=== PATIENT | female | born 1950 | race Caucasian/White ===

== ENCOUNTER 2023-10-11 11:33 | Outpatient (AMB) | payer BC, SELFPAY ==
--- NOTE | 2023-10-11 11:36 | HO.NEPHOV_ITS ---
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 He is 73 years of age with hypertension, dyslipidemia as well as history of gross hematuria. He is known to have benign prostatic hypertrophy. When his serum creatinine was about his baseline he underwent a renal ultrasound which showed bilateral moderate hydronephrosis and hydroureter. He underwent CT scan which did not show any obstructive calculi even though there was a calcification of the distal ureter(UVJ). He was started on tamsulosin. He had a Gar catheter placed but had a void trial G failed. He continues to have Gar catheter. He is being considered for a systolic. He is not a diabetic. His blood pressure is well controlled on current dose of amlodipine. He does not have any nausea, vomiting, diarrhea, chest pain, shortness of breath, paroxysmal nocturnal dyspnea, orthopnea, pedal edema, orthostatic symptoms, fever, palpitations. He does not take any excessive nonsteroidal anti-inflammatories. He tries to maintain good hydration. He does not have any new bone or back pain. His serum creatinine has gone up to 1.36. [facility] Medical History (Updated 10/11/23 @ 11:55 by Mick Ashby MD) Renal insufficiency Hypertension Hyperlipidemia H/O hematuria Dysuria Acute kidney injury Surgical History H/O colonoscopy Family History Father CAD (coronary artery disease) Mother Stroke Brother Stroke Review of Systems Const All systems reviewed & are unremarkable except as noted in HPI and below Physical Exam Vital Signs: Last Vital Signs Pulse 71 10/11/23 11:37 BP 120/78 10/11/23 11:37 Pulse Ox 98 10/11/23 11:37 Oxygen Delivery Method Room Air 10/11/23 11:37 BMI result Body Mass Index 21.7 Const General: comfortable and no acute distress Orientation/consciousness: patient oriented x3 HEENT Head: Yes normocephalic Mouth: Normal oral and palatal mucosa present Eyes EOM: EOMs intact bilaterally Neck Neck: Yes supple Resp Auscultation: clear to auscultation bilaterally Cardio Jugular venous distension: no JVD Rate: regular rate GI Palpation (GI): Soft to palpation Auscultation: normal bowel sounds General: Yes no CVA tenderness Back/Spine/Pelvis Back: no CVA tenderness Skin General skin exam: no rashes or lesions noted Neuro General: patient oriented x3 and moves all extremities Extrem General: Yes no pedal edema Results Reviewed Nephrology Results: No Data to Display Assessment & Plan Assessment & Plan (1) CKD stage 3a, GFR 45-59 ml/min: Code(s): N18.31 - Chronic kidney disease, stage 3a Category: Medical (2) Acute kidney injury: Code(s): N17.9 - Acute kidney failure, unspecified Category: Medical (3) Hypertension: Code(s): I10 - Essential (primary) hypertension Category: Medical Qualifiers: Hypertension type: primary hypertension Qualified Code(s): I10 - Essential (primary) hypertension Plan 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 He had ENRIQUE on CKD due to urinary retention with development of bilateral hydronephrosis and hydroureter. He had a Gar catheter placed and has failed void trial. Urology has seen him. He may need cystoscopy. He is not on any ALLAN inhibitor, ARB or nonsteroidal anti- inflammatories. His Gar catheter is draining clear urine. He does not take any excessive nonsteroidal anti-inflammatories and tries to maintain good hydration. There is no reason to suspect any new acute glomerular or inter stitial pathology causing his ENRIQUE. He might have sustained some tubular injury urine chronic obstruction and would have had age-related loss of renal functions. All these might have contributed to drop in GFR. I ordered CKD workup. He needs a follow-up renal ultrasound. His blood pressure is well controlled on current dose of amlodipine. I did not make any medication changes today. All questions answered. Follow-up appointment given. Orders: Orders Calcium 10/11/23 I10 - Essential (primary) hypertension, N18.31 - Chronic kidney disease, stage 3a, N17.9 - Acute kidney failure, unspecified Parathyroid Hormone Intact 10/11/23 I10 - Essential (primary) hypertension, N18.31 - Chronic kidney disease, stage 3a, N17.9 - Acute kidney failure, unspecified Vitamin D 25-OH Total 10/11/23 I10 - Essential (primary) hypertension, N18.31 - Chronic kidney disease, stage 3a, N17.9 - Acute kidney failure, unspecified Creatinine 10/11/23 I10 - Essential (primary) hypertension, N18.31 - Chronic kidney disease, stage 3a, N17.9 - Acute kidney failure, unspecified Blood Urea Nitrogen 10/11/23 I10 - Essential (primary) hypertension, N18.31 - Chronic kidney disease, stage 3a, N17.9 - Acute kidney failure, unspecified Electrolytes 10/11/23 I10 - Essential (primary) hypertension, N18.31 - Chronic kidney disease, stage 3a, N17.9 - Acute kidney failure, unspecified Immunofixation Pnl, Serum 10/11/23 I10 - Essential (primary) hypertension, N18.31 - Chronic kidney disease, stage 3a, N17.9 - Acute kidney failure, unspecified Coding Level of Care Code New Pt Level 4 (28293) Diagnoses CKD stage 3a, GFR 45-59 ml/min N18.31 Acute kidney injury N17.9 Primary hypertension I10 Hypertension type: primary hypertension
[2023-10-11 11:37] VITALS: BP 120/78; PULSE 71; O2SAT 98; BMI 21.7
== END 2023-10-11 12:33 | disposition home or self-care (01) ==
PROVIDERS: PCP Family Medicine; Visit Provider Internal Medicine Nephrology
DX: N18.31 Chronic kidney disease, stage 3a (principal); N17.9 Acute kidney failure, unspecified; I10 Essential (primary) hypertension
CPT/HCPCS: 99204

== ENCOUNTER → 2023-10-11 11:33 | Outpatient (BNVA) | payer BC, SELFPAY | PROVIDERS: PCP Family Medicine; Visit Provider Internal Medicine Nephrology ==

== ENCOUNTER 2024-01-05 11:11 | Outpatient (REF) | payer BC, SELFPAY ==
[2024-01-05 14:41] LABS: Anion Gap 10 (12-20); Blood Urea Nitrogen 21 mg/dL (9-16); Carbon Dioxide 28 mmol/L (22-29); Chloride 107 mmol/L (96-108); Estimated Glomerular Filt Rate 55; Potassium 3.7 mmol/L (3.3-5.1); Sodium 141 mmol/L (135-145)
[2024-01-05 15:00] LABS: Vitamin D 25-OH Total 31.4 ng/mL (>30)
[2024-01-05 15:04] LABS: Parathyroid Hormone Intact 102.4 pg/mL (8.7-77.1)
[2024-01-07 20:38] LABS: IgA 388 mg/dL (70-320); IgG 1110 mg/dL (600-1540); IgM 26 mg/dL (50-300)
== END 2024-01-05 11:12 | disposition home or self-care (01) ==
LOC: HO.WFDLDS 11:11
PROVIDERS: Visit Provider Internal Medicine Nephrology
DX: I12.9 Hypertensive chronic kidney disease with stage 1 through stage 4 chronic kidney disease, or unspecified chronic kidney disease (principal); N18.31 Chronic kidney disease, stage 3a; N17.9 Acute kidney failure, unspecified
CPT/HCPCS: 36415; 80051; 82306; 82310; 82565; 82784; 83970; 84520; 86334

== ENCOUNTER 2024-01-12 10:11 | Outpatient (AMB) | payer BC, SELFPAY ==
[2024-01-12 10:27] VITALS: BP 124/64; PULSE 55; O2SAT 99; BMI 22.4
--- NOTE | 2024-01-12 10:27 | HO.NEPHOV ---
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 He is 73 years of age with hypertension, dyslipidemia as well as history of gross hematuria. He is known to have benign prostatic hypertrophy. When his serum creatinine was about his baseline he underwent a renal ultrasound which showed bilateral moderate hydronephrosis and hydroureter. He underwent CT scan which did not show any obstructive calculi even though there was a calcification of the distal ureter(UVJ). He has been on tamsulosin. He had a Gar catheter placed but had a void trial failed. His Gar catheter was discontinued after prostatectomy. He is not a diabetic. His blood pressure is well controlled on current dose of amlodipine. He does not have any nausea, vomiting, diarrhea, chest pain, shortness of breath, paroxysmal nocturnal dyspnea, orthopnea, pedal edema, orthostatic symptoms, fever, palpitations. He does not take any excessive nonsteroidal anti-inflammatories. He tries to maintain good hydration. He does not have any new bone or back pain. His serum creatinine has gone back to baseline [facility] Medical History (Updated 10/11/23 @ 11:55 by Mick Ashby MD) Renal insufficiency Hypertension Hyperlipidemia H/O hematuria Dysuria Acute kidney injury Surgical History H/O colonoscopy Family History Father CAD (coronary artery disease) Mother Stroke Brother Stroke Review of Systems Const All systems reviewed & are unremarkable except as noted in HPI and below Physical Exam Vital Signs: Last Vital Signs Pulse 55 01/12/24 10:27 BP 124/64 01/12/24 10:27 Pulse Ox 99 01/12/24 10:27 Oxygen Delivery Method Room Air 01/12/24 10:27 BMI result Body Mass Index 22.4 Const General: comfortable and no acute distress Orientation/consciousness: patient oriented x3 HEENT Head: Yes normocephalic Mouth: Normal oral and palatal mucosa present Eyes EOM: EOMs intact bilaterally Neck Neck: Yes supple Resp Auscultation: clear to auscultation bilaterally Cardio Jugular venous distension: no JVD Rate: regular rate GI Palpation (GI): Soft to palpation Auscultation: normal bowel sounds General: Yes no CVA tenderness Back/Spine/Pelvis Back: no CVA tenderness Skin General skin exam: no rashes or lesions noted Neuro General: patient oriented x3 and moves all extremities Extrem General: Yes no pedal edema Results Reviewed Nephrology Results: Sodium 141 mmol/L (135-145) 01/05/24 Potassium 3.7 mmol/L (3.3-5.1) 01/05/24 Chloride 107 mmol/L (96-108) 01/05/24 Carbon Dioxide 28 mmol/L (22-29) 01/05/24 BUN 21 mg/dL (9-16) H 01/05/24 Creatinine 0.99 mg/dL (0.5-1.4) 01/05/24 Calcium 9.0 mg/dL (8.4-10.2) 01/05/24 PTH Intact 102.4 pg/mL (8.7-77.1) H 01/05/24 Assessment & Plan Assessment & Plan (1) CKD stage 3a, GFR 45-59 ml/min: Code(s): N18.31 - Chronic kidney disease, stage 3a Category: Medical (2) Hypertension: Code(s): I10 - Essential (primary) hypertension Category: Medical Qualifiers: Hypertension type: primary hypertension Qualified Code(s): I10 - Essential (primary) hypertension Plan 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 He had ENRIQUE on CKD due to urinary retention with development of bilateral hydronephrosis and hydroureter which has settled to baseline following prostatectomuy. He is not on any ALLAN inhibitor, ARB or nonsteroidal anti-inflammatories. He does not take any excessive nonsteroidal anti-inflammatories and tries to maintain good hydration. He needs a follow-up renal ultrasound. His blood pressure is well controlled on current dose of amlodipine. I did not make any medication changes today. All questions answered. Follow-up appointment given. Orders: Orders Parathyroid Hormone Intact 8 Months I10 - Essential (primary) hypertension, N18.31 - Chronic kidney disease, stage 3a Electrolytes 8 Months I10 - Essential (primary) hypertension, N18.31 - Chronic kidney disease, stage 3a Calcium 8 Months I10 - Essential (primary) hypertension, N18.31 - Chronic kidney disease, stage 3a Creatinine 8 Months I10 - Essential (primary) hypertension, N18.31 - Chronic kidney disease, stage 3a Vitamin D 25-OH Total 8 Months I10 - Essential (primary) hypertension, N18.31 - Chronic kidney disease, stage 3a Blood Urea Nitrogen 8 Months I10 - Essential (primary) hypertension, N18.31 - Chronic kidney disease, stage 3a Medications: Changed From amlodipine 7.5 mg PO DAILY To amlodipine 5 mg PO DAILY 90 days 90 tabs 4RF Coding Level of Care Code Est Pt Level 4 (46466) Diagnoses CKD stage 3a, GFR 45-59 ml/min N18.31 Primary hypertension I10 Hypertension type: primary hypertension
== END 2024-01-12 10:53 | disposition home or self-care (01) ==
PROVIDERS: PCP Family Medicine; Visit Provider Internal Medicine Nephrology
DX: I12.9 Hypertensive chronic kidney disease with stage 1 through stage 4 chronic kidney disease, or unspecified chronic kidney disease (principal); N18.31 Chronic kidney disease, stage 3a
CPT/HCPCS: 99214

== ENCOUNTER → 2024-01-12 10:11 | Outpatient (BNVA) | payer BC, SELFPAY | PROVIDERS: PCP Family Medicine; Visit Provider Internal Medicine Nephrology ==

== ENCOUNTER 2025-02-07 15:57 | Outpatient (AMB) | payer BC, SELFPAY ==
--- OUTSIDE RECORDS SUMMARY | 2025-02-02 23:59 | XMS_ITS | Continuity of Care Document ---
Author Organization [facility] Address [address] [place] [address] [address] [place] [address]- Care Team Providers Care Global Process Owner Name Role Phone Kaelyn GASTON, Noy Primary Care Physician [id number] Date(s): 12/19/24 - 02/02/[address] [place] [address]- Attending Physician: Parrish Echeverria MD Referring Physician: Edd Gibson MD Encounter Type: Pre Office Visit Allergies, Adverse Reactions, Alerts Substance Criticality Severity Reaction Reaction Severity Status clindamycin Active Biaxin Active Immunizations Given and Recorded Vaccine Date Status Refusal Reason RSV vaccine, preF A-preF B, recombinant 02/17/24 R ecorded influenza virus vaccine, inactivated 02/17/24 Sixto rded SARS-CoV-2 (COVID-19) mRNA-1273 vaccine 03/04/21 R ecorded SARS-CoV-2 (COVID-19) mRNA-1273 vaccine 06/25/20 R ecorded SARS-CoV-2 (COVID-19) mRNA-1273 vaccine 05/28/20 R ecorded Medications acyclovir 400 mg oral tablet 1 tablet, By Mouth, 2 times a day, # 180 tablet, 0 Refills, Maintenance, 12/29/24 7:53:00 AM EDT, [id number], 178, cm, 12/28/24 13:04:00 EDT, Height, 65.5, kg, 12/18/24 9:51:00 EDT, Dry Weight Start Date: 12/29/24 Status: Ordered Medication Dispense Status: Completed Quantity: 180.0 Unit: tablet Total Allowed Fills: 1 Fills Dispensed: 0 allopurinol 300 mg oral tablet 1, tablet, By Mouth, Daily, # 90 tablet, Refills 0, Maintenance, 12/29/24 7:53:00 AM EDT, Route to Pharmacy Electronically, [id number], 178, cm, 12/28/24 13:04:00 EDT, Height, 65.5, kg, 12/18/24 9:51:00 EDT, Dry Weight Start Date: 12/29/24 Status: Ordered Medication Dispense Status: Completed Quantity: 90.0 Unit: tablet Total Allowed Fills: 1 Fills Dispensed: 0 levoFLOXacin 500 mg oral tablet 1 tablet = 500 mg, By Mouth, Every 24 hours, # 90 tablet, 0 Refills, Maintenance, 01/18/25 10:18:00AM EDT, Tablet, [facility]/pharmacy #[id number], Partial fill upon patient request if the prescription is for a schedule II opioid drug., 178, cm, 01/18/25 9:49:00 EDT, Height, 65.2, kg, 01/02/25 9:10:00 EDT, DryWeight Start Date: 01/18/25 Stop Date: 02/17/25 Status: Ordered Medication Dispense Status: Completed Quantity: 90.0 Unit: tablet Total Allowed Fills: 1 Fills Dispensed: 0 levoFLOXacin 500 mg oral tablet 1 tablet = 500 mg, By Mouth, Daily, # 5 tablet, 0 Refills, Maintenance, 12/18/24 9:58:00 AM EDT, Tablet, Partial fill upon patient request if the prescription is for a schedule II opioid drug. Start Date: 12/18/24 Stop Date: 12/28/24 Status: Ordered Medication Dispense Status: Completed Quantity: 5.0 Unit: tablet Total Allowed Fills: 1 Fills Dispensed: 0 ondansetron 8 mg oral tablet 1 tablet = 8 mg, By Mouth, Every 8 hours, PRN Nausea, may cause constipation for use when starts chemotherapy, # 30 tablet, 2 Refills, Maintenance, 08/28/24 12:17:00 PM EDT, [facility] #[id number], Partialfill upon patient request if the prescription is for a schedule II opioid drug., 174.5, cm, 08/24/24 13:16:00 EDT, Height, 61.6, kg, 08/14/24 12:41:00 EDT, Dry Weight Start Date: 08/28/24 Status: Ordered Medication Dispense Status: Completed Quantity: 30.0 Unit: tablet Total Allowed Fills: 3 Fills Dispensed: 0 pantoprazole 40 mg oral delayed release tablet 1 tablet, By Mouth, Daily, # 90 tablet, 0 Refills, Maintenance, 12/29/24 7:53:00 AM EDT, 178, cm, 12/28/24 13:04:00 EDT, Height, 65.5, kg, 12/18/24 9:51:00 EDT, Dry Weight Start Date: 12/29/24 Status: Ordered Medication Dispense Status: Completed Quantity: 90.0 Unit: tablet Total Allowed Fills: 1 Fills Dispensed: 0 posaconazole 100 mg oral delayed release tablet 3 tablet, By Mouth, Daily, # 90 tablet, 2 Refills, Maintenance, 02/02/25 10:46:00 AM EST, [id number], 178, cm, 02/01/25 11:47:00 EST, Height, 65.2, kg, 01/02/25 9:10:00 EDT, Dry Weight Start Date: 02/02/25 Stop Date: 03/04/25 Status: Ordered Medication Dispense Status: Completed Quantity: 90.0 Unit: tablet Total Allowed Fills: 1 Fills Dispensed: 0 Potassium Chloride (Ose-Oqhm-Oqa M20) 20 mEq oral tablet, extended release 1 tablet = 20 mEq, By Mouth, Daily, # 90 tablet, 0 Refills, Maintenance, 02/01/25 4:45:00 PM EST, ERTablet, [facility]/pharmacy #[id number], Partial fill upon patient request if the prescription is for a scheduleII opioid drug., 178, cm, 02/01/25 11:47:00 EST, Height, 65.2, kg, 01/02/25 9:10:00 EDT, Dry Weight Start Date: 02/01/25 Status: Ordered Medication Dispense Status: Completed Quantity: 90.0 Unit: tablet Total Allowed Fills: 1 Fills Dispensed: 0 venetoclax 100 mg oral tablet 1 tablet = 100 mg, By Mouth, Daily, # 14 tablet, 0 Refills, Maintenance, 11/17/24 9:21:00 AM EDT, Tablet, [facility], Partial fill upon patient request if the prescription is for a schedule II opioid drug., 178, cm, 11/16/24 13:02:00 EDT, Height, 65.3, kg, 11/02/24 14:06:00 EDT, DryWeight Start Date: 11/17/24 Stop Date: 12/01/24 Status: Ordered Medication Dispense Status: Completed Quantity: 14.0 Unit: tablet Total Allowed Fills: 1 Fills Dispensed: 0 Problem List Condition Confirmation Course Effective Dates Status H ealth Status Informant Acute 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 Confirmed 09/08/24 Active GERD without esophagitis Confirmed Active H/O hematuria 1 Confirmed Active S/P prostatectomy Confirmed Active Hyperlipidemia Confirmed Active Hypertension Confirmed Active 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 Umbilical hernia without obstruction and without gangrene Confirmed Active [id number] Social History Social History Type Response Smoking Status Never (less than 100 in lifetime) entered on: 06/19/20 Sexual Orientation Self described orien tation: ; Straight or heterosexual Sex Male Sex Representation Male (finding) Patient Care team information Care Team Personnel Name: Macarena Villarreal RN Position: [facility] RN Member Role: Primary Care Nurse Name: Yvonne Cisneros RN Position: [facility] RN Supv Member Role: Primary Care Nurse Name: Yvonne Haley RN Position: S RN Member Role: Primary Care Nurse Name: Deborah Sauer RN Position: [facility] Onco RN Member Role: Primary Care Nurse Name: Cate Brock RN Position: S RN Member Role: Primary Care Nurse Name: Brittni Magana RN Position: [facility] Onco RN Member Role: Primary Care Nurse Name: Cordelia Alaniz RN Position: [facility] RN Member Role: Primary Care Nurse Name: Cass Ugalde RN Position: [facility] Onco RN Member Role: Primary Care Nurse Name: Yvonne Canales RN Position: S RN Member Role: Primary Care Nurse Name: Daniel Dietz RN Position: S RN Member Role: Primary Care Nurse Name: Verónica Paez RN Position: S RN Member Role: Primary Care Nurse Name: Tiffany Baeza RN Position: [facility] ED RN W/OE and Tasks Member Role: Primary Care Nurse Name: Dominick Gonzalez RN Position: [facility] RN Member Role: Primary Care Nurse Name: Elbert Conley RN Position: [facility] RN Member Role: Primary Care Nurse Name: Dacia Mayers RN Position: [facility] Onco RN Member Role: Primary Care Nurse Name: Pamela Pop RN Position: [facility] Onco RN Member Role: Primary Care Nurse Name: Herminia Nunes Position: [facility] RN Member Role: Primary Care Nurse Name: Noy Art MD Position: [facility] Physician - Primary Care Member Role: PCP Address: [address] [place] [id number]- Telecom: Name: Miah Aly RN Position: [facility] Onco RN Member Role: Primary Care Nurse Name: Ellyn Dewitt RN Position: [facility] Onco RN Member Role: Primary Care Nurse Name: Yvonne Carlton RN Position: [facility] Onco RN Member Role: Primary Care Nurse Name: Edy Gillespie RN Position: [facility] RN Member Role: Primary Care Nurse Name: Thu Mckay RN Position: [facility] RN Member Role: Primary Care Nurse Name: Raleigh Zamarripa RN Position: [facility] RN Member Role: Primary Care Nurse Name: Katrin Brady RN Position: [facility] RN Member Role: Primary Care Nurse Name: Frances Sol RN Position: [facility] RN Member Role: Primary Care Nurse Name: Giana Garza RN Position: [facility] RN Member Role: Primary Care Nurse Name: Michael Osman RN Position: [facility] RN Member Role: Primary Care Nurse Name: Shasha Thornton RN Position: [facility] RN Member Role: Primary Care Nurse Care Team Related Persons Name: VALERIE MCGILL Insurance Providers Guarantor name: DRU MELVIJEANNINE [facility] Plan Information #: 1 Payer: [facility] PPO Payer Identifier: NA Member Number: [id number] Group Number: [id number] Subscriber Identifier: [id number] Relationship to Subscriber: self Coverage Type: Medicare PPO Coverage Verification Date: NA Telecom: NA Address:
--- OUTSIDE RECORDS SUMMARY | 2025-02-02 23:59 | XMS_ITS | Continuity of Care Document ---
Author Organization [facility] Address [address] [place] [address] [address] [place] [address]- Care Team Providers Care Elevated Work Platform Operator Name Role Phone Kaelyn GASTON, Noy Primary Care Physician Encounter [facility] Date(s): 01/03/25 - 02/02/[address] [place], [place] [address] Attending Physician: Admtr, Ar8 Admitting Physician: Admtr, Ar8 Referring Physician: Admtr, Ar8 Encounter Type: Triage Allergies, Adverse Reactions, Alerts Substance Criticality Severity [...] 0 Refills, Maintenance, 12/29/24 7:53:00 AM EDT, [id number], 178, cm, 12/28/24 13:04:00 EDT, Height, 65.5, kg, 12/18/24 9:51:00 EDT, Dry Weight Start Date: 12/29/24 Status: Ordered Medication Dispense Status: Completed Quantity: 180.0 Unit: tablet Total Allowed Fills: 1 Fills Dispensed: 0 allopurinol 300 mg oral tablet 1, tablet, By Mouth, Daily, # 90 tablet, Refills 0, Maintenance, 12/29/24 7:53:00 AM EDT, Route to Pharmacy Electronically, [id number], 178, cm, 12/28/24 13:04:00 EDT, Height, 65.5, kg, 12/18/24 9:51:00 EDT, Dry Weight Start Date: 12/29/24 Status: Ordered Medication Dispense Status: Completed Quantity: 90.0 Unit: tablet Total Allowed Fills: 1 Fills Dispensed: 0 levoFLOXacin 500 mg oral tablet 1 tablet = 500 mg, By Mouth, Every 24 hours, # 90 tablet, 0 Refills, Maintenance, 01/18/25 10:18:00AM EDT, Tablet, [facility]/pharmacy #[id number], Partial fill upon patient request if [...] 2 Refills, Maintenance, 02/02/25 10:46:00 AM EST, [id number], 178, cm, 02/01/25 11:47:00 EST, Height, 65.2, kg, 01/02/25 9:10:00 EDT, Dry Weight Start Date: 02/02/25 Stop Date: 03/04/25 Status: Ordered Medication Dispense Status: Completed Quantity: 90.0 Unit: tablet Total Allowed Fills: 1 Fills Dispensed: 0 Potassium Chloride (Wbo-Klpp-Ufj M20) 20 mEq oral tablet, extended release 1 tablet = 20 mEq, By Mouth, Daily, # 90 tablet, 0 Refills, Maintenance, 02/01/25 4:45:00 PM EST, ERTablet, [facility]/pharmacy #[id number], Partial fill upon patient request if [...] Refills, Maintenance, 11/17/24 9:21:00 AM EDT, Tablet, [facility], Partial fill upon patient [...] without obstruction and without gangrene Confirmed Active [id number] Social History Social History Type Response Smoking Status Never (less than 100 in lifetime) entered on: 06/19/20 Sexual Orientation Self described orien tation: ; Straight or heterosexual Sex Male Sex Representation Male (finding) Patient Care team information Care Team Personnel Name: Macarena Villarreal RN Position: [facility] RN Member Role: Primary Care Nurse Name: Yvonne Cisneros RN Position: [facility] RN Supv Member Role: Primary Care Nurse Name: Yvonne Haley RN Position: S RN Member Role: Primary Care Nurse Name: Deborah Sauer RN Position: [facility] Onco RN Member Role: Primary Care Nurse Name: Cate Brock RN Position: S RN Member Role: Primary Care Nurse Name: Brittni Magana RN Position: S Onco RN Member Role: Primary Care Nurse Name: Cordelia Alaniz RN Position: [facility] RN Member Role: Primary Care Nurse Name: Cass Ugalde RN Position: [facility] Onco RN Member Role: Primary Care Nurse Name: Yvonne Canales RN Position: S RN Member Role: Primary Care Nurse Name: Daniel Dietz RN Position: [facility] RN Member Role: Primary Care Nurse Name: Verónica Paez RN Position: S RN Member Role: Primary Care Nurse Name: Tiffany Baeza RN Position: [facility] ED RN W/OE and Tasks Member Role: Primary Care Nurse Name: Dominick Gonzalez RN Position: [facility] RN Member Role: Primary Care Nurse Name: Elbert Conley RN Position: [facility] RN Member Role: Primary Care Nurse Name: Dacia Mayers RN Position: [facility] Onco RN Member Role: Primary Care Nurse Name: Pamela Pop RN Position: [facility] Onco RN Member Role: Primary Care Nurse Name: Herminia Nunes Position: [facility] RN Member Role: Primary Care Nurse Name: Noy Art MD Position: [facility] Physician - Primary Care Member Role: PCP Address: [address] [place] [id number] Telecom: Name: Miah Aly RN Position: [facility] Onco RN Member Role: Primary Care Nurse Name: Ellyn Dewitt RN Position: [facility] Onco RN Member Role: Primary Care Nurse Name: Yvonne Carlton RN Position: [facility] Onco RN Member Role: Primary Care Nurse Name: Edy Gillespie RN Position: [facility] RN Member Role: Primary Care Nurse Name: Thu Mckay RN Position: [facility] RN Member Role: Primary Care Nurse Name: Raleigh Zamarripa RN Position: [facility] RN Member Role: Primary Care Nurse Name: Katrin Brady RN Position: [facility] RN Member Role: Primary Care Nurse Name: Frances Sol RN Position: [facility] RN Member Role: Primary Care Nurse Name: Giana Garza RN Position: [facility] RN Member Role: Primary Care Nurse Name: Michael Osman RN Position: [facility] RN Member Role: Primary Care Nurse Name: Shasha Thornton RN Position: [facility] RN Member Role: Primary Care Nurse Care Team Related Persons Name: GINO MCGILLCY Insurance Providers Guarantor name: DRU MCGILL [facility] Plan Information #: 1 Payer: [facility] PPO Payer Identifier: TYRONE Member Number: [id number] Group Number: [id number] Subscriber Identifier: TYRONE Relationship to Subscriber: self Coverage Type: Medicare PPO Coverage Verification Date: NA Telecom: NA Address:
--- NOTE | 2025-02-07 15:58 | HO.NEPHOV ---
Vital Signs 02/07/25 16:04 Height 51 ft Weight 144 lb 6 oz BMI 0.3 BP 134/80 Blood Pressure Location Lt brachial Position Sitting Pulse 67 Pulse Source Pulse Oximeter Pulse Oximetry (%) 99 Oxygen Delivery Method Room Air Intake Visit Reasons: Overdue F/U-Conf Necktie Centralizing Machine Operator Required: No Accompanied by: Self / Same As Patient Allergies clindamycin Allergy (Verified 02/07/25 16:04) Unknown blaxin Allergy (Uncoded 10/04/23 11:43) Unknown HPI Comments Details: Familia was seen in follow up for his CKD. He is 73 years of age with hypertension, dyslipidemia as well as history of gross hematuria. He is known to have benign prostatic hypertrophy. When his serum creatinine was about his baseline he underwent a renal ultrasound which showed bilateral moderate hydronephrosis and hydroureter. He underwent CT scan which did not show any obstructive calculi even though there was a calcification of the distal ureter(UVJ). He has been on tamsulosin. He had a Gar catheter placed but had a void trial failed. His Gra catheter was discontinued after prostatectomy. He is not a diabetic. His blood pressure is well controlled on current dose of amlodipine. He does not have any nausea, vomiting, diarrhea, chest pain, shortness of breath, paroxysmal nocturnal dyspnea, orthopnea, pedal edema, orthostatic symptoms, fever, palpitations. He does not take any excessive nonsteroidal anti-inflammatories. He tries to maintain good hydration. He does not have any new bone or back pain. 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 His serum creatinine is stable and close to baseline PENDING SALE TO [facility] Medical History (Updated 10/11/23 @ 11:55 by Mick Ashby MD) Renal insufficiency Hypertension Hyperlipidemia H/O hematuria Dysuria Acute kidney injury Surgical History H/O colonoscopy Family History Father CAD (coronary artery disease) Mother Stroke Brother Stroke Review of Systems Const All systems reviewed & are unremarkable except as noted in HPI and below Physical Exam Const General: comfortable and no acute distress Orientation/consciousness: patient oriented x3 HEENT Head: Yes normocephalic Mouth: Normal oral and palatal mucosa present Eyes EOM: EOMs intact bilaterally Neck Neck: Yes supple Resp Auscultation: clear to auscultation bilaterally Cardio Jugular venous distension: no JVD Rate: regular rate GI Palpation (GI): Soft to palpation Auscultation: normal bowel sounds General: Yes no CVA tenderness Back/Spine/Pelvis Back: no CVA tenderness Skin General skin exam: no rashes or lesions noted Neuro General: patient oriented x3 and moves all extremities Extrem General: Yes no pedal edema Assessment & Plan Assessment & Plan (1) CKD stage 3a, GFR 45-59 ml/min: Code(s): N18.31 - Chronic kidney disease, stage 3a Category: Medical (2) Hypertension: Code(s): I10 - Essential (primary) hypertension Category: Medical Qualifiers: Hypertension type: primary hypertension Qualified Code(s): I10 - Essential (primary) hypertension Plan 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 He has H/O ENRIQUE on CKD due to urinary retention with development of bilateral hydronephrosis and hydroureder which has settled to baseline following prostatectomuy. He is not on any ALLAN inhibitor, ARB or nonsteroidal anti-inflammatories. He does not take any excessive nonsteroidal anti-inflammatories and tries to maintain good hydration. He needs a follow-up renal ultrasound. His blood pressure is well controlled. I did not make any medication changes today. All questions answered. Follow-up appointment given. Orders: Orders Electrolytes 8 Months I10 - Essential (primary) hypertension, N18.31 - Chronic kidney disease, stage 3a Calcium 8 Months I10 - Essential (primary) hypertension, N18.31 - Chronic kidney disease, stage 3a Blood Urea Nitrogen 8 Months I10 - Essential (primary) hypertension, N18.31 - Chronic kidney disease, stage 3a Creatinine 8 Months I10 - Essential (primary) hypertension, N18.31 - Chronic kidney disease, stage 3a Coding Level of Care Code Est Pt Level 4 (31228) Diagnoses CKD stage 3a, GFR 45-59 ml/min N18.31 Primary hypertension I10 Hypertension type: primary hypertension
[2025-02-07 16:04] VITALS: BP 134/80; PULSE 67; O2SAT 99
--- OUTSIDE RECORDS SUMMARY | 2025-02-07 18:52 | XMS_ITS | Encounter Summary ---
Author Organization [facility] Address [address] [place] [address] Phone Care Team Providers Care Chairman President And Chief Executive Officer Name Role Phone Sarath Anthony Primary Care Provider Domenico Arshad MD Unavailable [phone] Stephanie Choi RN Unavailable Encounter Details Date Type Department Care Team (Latest Contact Info) Description 02/07/2025 Lab Requisition [facility] Histocmpatibility Lab [address] [place] [address] Diomedes Smith MD, MPH [address] [place] [address] [email or web address] Donor of unspecified organ or tissue Social History Tobacco Use Types Packs/Day Years Used Date Smoking Tobacco: Former Cigarettes Alcohol Use Standard Drinks/Week Comments Yes 3 (1 standard drink = 0.6 oz pure alcohol) 3 beers per day (stop last year) Child or Family Care Answer Date Record ed Do you have problems with on e of the following making it difficult for you to work, study, or receive health care? No 12/20/2024 Education Answer Date Recorded Are you interested in more education? Not on venkata e 12/05/2024 Are you concerned about learning? Not on file 12/05/2024 No 12/05/2024 No 12/05/2024 Food Answer Date Recorded Within the past 6 months we worried whether our food would run out before we got money to buy more. Never True 12/20/2024 Within the past 6 months the food we bought just didn't last and we didn't have enough money to get more. Never True Residential Stability Answer Date Recor ded What is your housing situation today? I have johan sing 12/20/2024 How many times have you move d in the past 12 months? Zero (I did not move) 12/20/2024 Paying for Meds Answer Date Recorded Do you have trouble paying for medicines? No 12/20/2024 Paying Utility Bills Answer Date Record ed Do you have trouble paying your heating or elect ricity bill? No 12/20/2024 Transportation Answer Date Recorded Has the lack of transportati on kept you from medical appointments or from getting medications? No 12/20/2024 Digital Access Answer Date Recorded No 12/05/2024 No 12/05/2024 Reliable internet access at home? Not on file 12/05/2024 Device with a working camera? Not on file Sex and Gender Information Value Date Recorded Sex Assigned at Male 12/04/2024 8:52 AM EDT Legal Sex Male 8:50 AM EDT Gender Identity Male 12/04/2024 8:52 AM EDT Sexual Orientation Straight 12/04/2024 9: 22 AM EDT documented as of this encounter Plan of Treatment Pending Results Name Type Priority Associated Diagnoses Date /Time HSCT Donor - Final (Confirmatory) Workup ([facility]) Lab Routine Donor of unspecified organ or tissue 02/02/2025 7:15 AM EST documented as of this encounter Visit Diagnoses Diagnosis Donor of unspecified organ or tissue documented in this encounter Care Teams Chairman President And Chief Executive Officer Relationship Specialty Start Date End Date Sarath Anthony DO [address] [facility] [place] [place] [address] PCP - General Family Medicine 12/04/24 Domenico Arshad MD [address] [facility] [place] [address] [email or web address] Referring Physician 12/04/24 Stephanie Choi, STEPHANE [address] [place] [phone] [email or web address] Nurse Navigator Transplant 01/09/25 documented as of this encounter Additional Source Comments The information contained in this document represents components of the legal health record. It is not the complete legal health record.[facility]
--- OUTSIDE RECORDS SUMMARY | 2025-02-07 18:52 | XMS_ITS | Encounter Summary ---
Author Organization [facility] Address [address] [place] [address] Phone Care Team Providers Care Special Makeup Fx Artist Instructor Name Role Phone Sarath Anthony DO Primary Care Provider Domenico Arshad MD Unavailable [phone] Stephanie Choi RN Unavailable Reason for Referral * Molecular Pathology - Denied Specialty Diagnoses / Procedures Referred By Yanira whitmore Referred To Contact Diagnoses Acute 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 Procedures Bone Marrow Frances Meyer PA-C [address] [place] [address] Phone: tel: fax: [email or web address] Referral ID Status Reason Start Date Expiration Date Visits Re quested Visits Authorized [id number] Denied 01/02/2025 1 0 Encounter Details Date Type Department Care Team (Late st Contact Info) Description 01/02/2025 Orders Only [facility], Division of Hematologic Oncology, [facility] [place] [address] [place] [address], [address] [place] [address] Frances Meyer PA-C [address] [place] [id number] [email or web address] 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) Social History Tobacco Use Types Packs/Day Years [...] as of this encounter Plan of Treatment Not on file documented as of this encounter Visit Diagnoses Diagnosis 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 documented in this encounter Care Teams Special Makeup Fx Artist Instructor Relationship Specialty Start Date End Date Sarath Anthony DO [address] [facility] [place] [address] PCP - General Family Medicine 12/04/24 [place] [address] [place] [address] [place] [address] [email or web address] Referring Physician 12/04/24 Stephanie Choi RN [address] [place] [address] [email or web address] Nurse Navigator Transplant 01/09/25 documented as of this encounter Additional Source Comments The information contained in this document represents components of the legal health record. It is not the complete legal health record.[facility]
--- OUTSIDE RECORDS SUMMARY | 2025-02-07 18:52 | XMS_ITS | Encounter Summary ---
Author Organization [facility] Address [address] [place] [address] Phone Care Team Providers Care Jewelry Model Maker Name Role Phone Anthony, Sarath Ever Primary Care Provider Domenico Arshad MD Unavailable [phone] Stephanie Choi RN Unavailable Encounter Details Date Type Department Care Team (Late st Contact Info) Description 01/09/2025 Orders Only Division of Hematologic Oncology, [facility] [place] [address] [facility], [address] [place] [address] Estella Ibarra, [facility] [address] [place] [address] [email or web address] Social History Tobacco Use Types Packs/Day Years [...] documented as of this encounter Visit Diagnoses Not on filedocumented in this encounter Care Teams Jewelry Model Maker Relationship Specialty Start Date End Date Sarath Anthony DO [address] [facility] [place] [address] PCP - General Family Medicine 12/04/24 Domenico Arshad MD [address] [place] [address] [place] [address] [email or web address] Referring Physician 12/04/24 Stephanie Choi RN [address] [place] [phone] [email or web address] Nurse Navigator Transplant 01/09/25 documented as of this encounter Additional Source Comments The information contained in this document represents components of the legal health record. It is not the complete legal health record.[facility]
--- OUTSIDE RECORDS SUMMARY | 2025-02-07 18:52 | XMS_ITS | Clinical Summary ---
Author Organization [facility] Address [address] [place] [address] Phone Care Team Providers Care Boat Crew Deck Hand Name Role Phone Anthony, Sarath Cazaresip Primary Care Provider Domenico Arshad MD Unavailable [phone] Stephanie Choi RN Unavailable Allergies Active Allergy Reactions Criticality Noted Date Comments Clarithromycin 12/25/2024 Clindamycin Paralysis High 12/25/2024 Medications acyclovir (ZOVIRAX) 400 MG tablet Take 400 mg by mouth 2 (two) times a day. 07/12/2024 Active allopurinol (ZYLOPRIM) 300 MG tablet Take 300 mg by mouth daily. 10/03/2024 Active levoFLOXacin (LEVAQUIN) 500 MG tablet Take 500 mg by mouth daily. 12/18/2024 Active ondansetron (ZOFRAN) 8 MG tablet Take 8 mg by mouth daily as needed for nausea. 08/28/2024 Active pantoprazole (PROTONIX) 40 MG tablet Take 40 mg by mouth daily. 10/03/2024 Active posaconazole (NOXAFIL) 100 mg TbEC Take 300 mg by mouth daily with breakfast. 12/31/2024 Active potassium chloride (K-TAB) 20 mEq TbER ER tablet Take 1 tablet by mouth every morning. 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 Encounters Date Type Department Care Team Description 02/07/2025 Lab Requisition [facility] [address] [place] [address] Diomedes Smith MD, MPH Donor of unspecified organ or tissue 02/05/2025 Lab Requisition [facility] [address] [place] [address] Diomedes Smith MD, MPH Donor of unspecified organ or tissue 02/01/2025 Lab Requisition [facility] [address] [place] [address] Diomedes Smith MD, MPH Donor of unspecified organ or tissue 01/31/2025 Lab Requisition [facility] [address] [place] [address] Diomedes Smith MD, MPH Donor of unspecified organ or tissue 01/31/2025 Lab Requisition [facility] [address] [place] [address] Diomedes Smith MD, MPH Donor of unspecified organ or tissue 01/31/2025 Lab Requisition [address] [address] Diomedes Smith MD, MPH Donor of unspecified organ or tissue 01/22/2025 Documentation Central Registration, [address], [address] [place] [address] Ira Diaz 01/09/2025 12:44 PM EDT - 01/09/2025 11:59 PM EDT Hospital Encounter Procedure Suite, [address], [address] [place] [address] Tiffany Huff NP Koreth, John, MD, PhD Discharge Disposition: Home or Self Care 01/09/2025 9:00 AM EDT Office Visit Division of Hematologic Oncology, [address], [address] [place] [address] Dru Obrien MD, PhD 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) 01/09/2025 Documentation Division of Hematologic Oncology, [address], [address] [place] [address] Stephanie Choi, STEPHANE Care Coordination 01/09/2025 Episode Changes Division of Hematologic Oncology, [address], [address] [place] [address] Emmy Milian 01/09/2025 Orders Only Division of Hematologic Oncology, [address], [address] [place] [address] Estella Ibarra CNP 01/04/2025 Orders Only Division of Hematologic Oncology, [facility] [address], [address] [place] [address] Dru Obrien MD, PhD 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) 01/02/2025 Orders Only [facility], Division of Hematologic Oncology, [address], [address] [place] [address] Frances Meyer PA-C 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) from Last 3 Months Social History Tobacco Use Types Packs/Day Years Used Date Smoking Tobacco: Former Cigarettes Tobacco Cessation:Counseling Given: Not Answered Alcohol Use Standard Drinks/Week Comments Yes 3 [...] Orientation Straight 12/04/2024 9: 22 AM EDT Last Filed Vital Signs Vital Sign Reading Time Taken Comments Blood Pressure 147/63 01/09/2025 3:35 PM EDT Pulse 74 01/09/2025 3:35 PM EDT Temperature 36.4 C (97.5 F) 01/09/2025 3:35 PM EDT Respiratory Rate 18 01/09/2025 9:04 AM EDT Oxygen Saturation 95% 01/09/2025 9:04 AM EDT Inhaled Oxygen Concentration - - Weight 64.1 kg (141 lb 5 oz) 01/09/2025 9:04 AM EDT Height 175.7 cm (5' 9.17 ) 12/26/2024 10:18 AM E DT Body Mass Index 20.76 12/26/2024 10:18 AM EDT Plan of Treatment Health Maintenance Due Date Last Done Comments Adult Td,Tdap Booster 1950 LIPID PANEL 1950 DEPRESSION SCREENING 1961 SMOKING Hx and SMOKELESS TOBACCO SCREENING 1962 HEPATITIS C SCREENING 1967 PNEUMOCOCCAL VACCINES (50+ years) (1 of 2 - PCV) 1968 ZOSTER VACCINES (1 of 2) 1968 COLOGUARD 1994 COLONOSCOPY 1994 COLORECTAL CANCER SCREENING 1994 FIT TEST 1994 FOBT 1994 SIGMOIDOSCOPY 1994 VIRTUAL COLONOSCOPY 1994 INFLUENZA VACCINE (#1) 2024 02/17/2024 COVID-19 VACCINE (2024-2 6 season) 2024 03/04/2021, 06/25/2020, 05/28/2020 BLOOD PRESSURE 07/10/2025 01/09/2025 CREATININE LEVEL 12/26/2025 12/26/2024 POTASSIUM LEVEL 12/26/2025 12/26/2024 RSV VACCINE Completed 02/17/2024 HEPATITIS A VACCINES Aged Out No long er eligible based on patient's age to complete this topic HIB VACCINES Aged Out No longer eligi ble based on patient's age to complete this topic IPV VACCINES Aged Out No longer eligi ble based on patient's age to complete this topic MENINGOCOCCAL VACCINES (ACWY) Aged Out No longer eligible based on patient's age to complete this topic MENINGOCOCCAL VACCINES (B) Aged Out N o longer eligible based on patient's age to complete this topic Medical Devices Not on file Procedures Procedure Name Priority Date/Time Associated Diagnosis Comments BONE MARROW PROCEDURES Routine 3:15 PM EDT Acute 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 AML MRD Routine 01/09/2025 3:11 PM EDT Bone marrow aspirate Routine 01/09/2025 3:11 PM EDT PERIPHERAL BLOOD SMEAR, PATH REVIEW Routine 01/09/2025 11:58 AM EDT HC BLOOD COUNT COMPLETE AUTO&AUTO DIFRNTL WBC Routine 01/09/2025 11:58 AM EDT Acute 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 HLA CLASS 2 SINGLE AG ANTIBODY ID (1000) Routine 01/09/2025 11:58 AM EDT Acute 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 HLA CLASS 1 SINGLE AG ANTIBODY ID (1000) Routine 01/09/2025 11:58 AM EDT Acute 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 HLA-DPB1 HIGH RESOLUTION TYPING Routine 01/09/2025 11:58 AM EDT Acute 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 HLA DQB1 HIGH RESOLUTION TYPING Routine 01/09/2025 11:58 AM EDT Acute 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 HLA-DQA1 HIGH RESOLUTION TYPING Routine 01/09/2025 11:58 AM EDT Acute 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 HLA [id number] HIGH RESOLUTION TYPING Routine 01/09/2025 11:58 AM EDT Acute 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 HLA ABC/DRB1 HIGH RESOLUTION TYPING Routine 01/09/2025 11:58 AM EDT Acute 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 HLA ABO DONOR Routine 01/09/2025 11:58 AM EDT Acute 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 CYTOGENETICS Routine 01/09/2025 12:00 AM EDT BONE MARROW Routine 01/09/2025 12:00 AM EDT TISSUE TYPING - RECIPIENT/DONOR INFORMATION AND RESULTS Routine 01/09/2025 12:00 AM EDT RAPID HEME PANEL Routine 12/26/2024 9:21 AM EDT Acute 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 BLOOD BANK HOLD SPECIMEN Routine 12/26/2024 9:21 AM EDT Acute 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 URIC ACID Routine 12/26/2024 9:21 AM EDT Acute 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 PTT Routine 12/26/2024 9:21 AM EDT Acute 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 PHOSPHORUS Routine 12/26/2024 9:21 AM EDT Acute 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 PT-INR Routine 12/26/2024 9:21 AM EDT Acute 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 MAGNESIUM Routine 12/26/2024 9:21 AM EDT Acute 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 LDH Routine 12/26/2024 9:21 AM EDT Acute 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 HC BLOOD COUNT COMPLETE AUTO&AUTO DIFRNTL WBC Routine 12/26/2024 9:21 AM EDT Acute 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 FIBRINOGEN Routine 12/26/2024 9:21 AM EDT Acute 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 COMPREHENSIVE METABOLIC PANEL (CMP) Routine 12/26/2024 9:21 AM EDT Acute 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 RAPID HEME PANEL Routine 12/26/2024 12:0 0 AM EDT OUTSIDE LAB 11/16/2024 OUTSIDE LAB 11/13/2024 from Last 3 Months Results * BONE MARROW PROCEDURES (01/09/2025 3:15 PM EDT) Narrative Tiffany Huff NP - 01/09/2025 3:15 PM EDT Tiffany Huff NP 01/09/2025 3:54 PM Bone Marrow Procedures Date/Time: 01/09/2025 3:15 PM Performed by: Tiffany Huff NP Authorized by: King Roldan M.D. Leukemia MD Hans Verbal consent obtained?: Yes Written consent obtained?: Yes Time out: Immediately prior to the procedure a time-out was called Preparation: Patient was prepped and draped in usual sterile fashion Estimated blood loss: Less than 10cc Specimens collected: Bone Marrow Core and Aspiration (flow MRD, rapid heme, cyto) Aspiration Volume Removed: 9cc Unexpected or unusual outcomes: None Assisting clinician: Herminia Block Local anesthesia used?: Yes Local anesthetic (Please document the med administrations in the MAR or Sedation Narrator activitiy depending on workflow): Lidocaine 1% with epinephrine and lidocaine 1% without epinephrine 10cc or less Patient sedated?: No Patient tolerance: Patient tolerated the procedure well with no immediate complications Comments: An 11 g Jamshidi needle was inserted into the posterior iliac crest. Liquid aspirate was obtained. Next, the instrument was advanced. Core was obtained using the included marrow acquisition cradle. 1 cm core sample was removed. Gentle pressure was applied to the site. Hemostasis was achieved. The area was cleansed and dressed. King Hodges M.D. Leukemia D antonia Roldan MD PROCEDURE/MINOR SURGICAL ORDERABLES Final Result * AML MRD (01/09/2025 3:11 PM EDT) Pathologist [facility] [place] AML MRD SEE MANUAL REPORT [facility] 01/09/2025 3:11 PM EDT 01/09/2025 5:43 PM EDT Dru Obrien MD, PhD LAB BLOOD ORDERABLES Final R esult Performing Organization Address City/[facility]/ZIP Co de Phone Number [facility] [address] [place] [address] * Bone marrow aspirate (01/09/2025 3:11 PM EDT) Pathologist [facility] [place] BONE MARROW DIFF SEE PATHOLOGY REPORT [facility] 01/09/2025 3:11 PM EDT 01/09/2025 3:52 PM EDT Dru Obrien MD, PhD BODY FLUIDS AND STOOLS ORDER MAGDALENA Final Result Performing Organization Address City/[facility]/ZIP Co de Phone Number [facility] [address] [place] [address] * Peripheral Blood Smear, Path Review (01/09/2025 11:58 AM EDT) Pathologist [facility] [place] PATH REVIEW Rare atypical mononuclear cell, most compatible with left shifted monocyte, reviewed by Bartolome Patterson MD PhD. [facility] 01/09/2025 11:5 8 AM EDT 01/09/2025 12:20 PM EDT Result Sukhdev Obrien MD, PhD PATHOLOGY ORDERABLES Final R esult [facility] [address] [place] [address] * HLA-DQA1 High Resolution Typing (01/09/2025 11:58 AM EDT) HLA-DQA1 Hi Res Typ SEE TISSUE TYPING RPT IN EPIC UNDER CHART REVIEW-LAB [facility] Blood 01/09/2025 11:5 8 AM EDT 01/09/2025 12:26 PM EDT Result Sukhdev Obrien MD, PhD LAB BLOOD ORDERABLES Final R esult Performing Organization Address [facility] Co de Phone Number [facility] [address] [place] [phone] * HLA-DPB1 High Resolution Typing (01/09/2025 11:58 AM EDT) HLA-DPB1 Hi Res Typ SEE TISSUE TYPING RPT IN [facility] UNDER CHART REVIEW-LAB [facility] Blood 01/09/2025 11:5 8 AM EDT 01/09/2025 12:26 PM EDT Result Sukhdev Obrien MD, PhD LAB BLOOD ORDERABLES Final R esult Performing Organization Address [facility] Co de Phone Number [facility] [address] [place] [phone] * HLA Class 2 Single Ag Antibody ID (1000) (01/09/2025 11:58 AM EDT) HLAClass2 Ab ID 1000 SEE TISSUE TYPING RPT IN [facility] UNDER CHART REVIEW-LAB [facility] Blood 01/09/2025 11:5 8 AM EDT 01/09/2025 12:20 PM EDT Result Sukhdev Obrien MD, PhD LAB BLOOD ORDERABLES Final R esult Performing Organization Address [facility] Co de Phone Number [facility] [address] [place] [phone] * HLA Class 1 Single Ag Antibody ID (1000) (01/09/2025 11:58 AM EDT) HLAClass1 Ab ID 1000 SEE TISSUE TYPING RPT IN [facility] UNDER CHART REVIEW-LAB [facility] Blood 01/09/2025 11:5 8 AM EDT 01/09/2025 12:20 PM EDT us Dru Obrien MD, PhD LAB BLOOD ORDERABLES Final R esult Performing Organization Address City/[facility] Co de Phone Number [facility] [address] [place] [phone] * HLA ABC/DRB1 High Resolution Typing (01/09/2025 11:58 AM EDT) HLA ABC/DRB1 hi res SEE TISSUE TYPING RPT IN [facility] UNDER CHART REVIEW-LAB [facility] PURPLE TOP TUBE SEE TISSUE TYPING RPT IN [facility] UNDER CHART REVIEW-LAB [facility] Blood 01/09/2025 11:5 8 AM EDT 01/09/2025 12:26 PM EDT us Dru Obrien MD, PhD LAB BLOOD ORDERABLES Final R esult Performing Organization Address [facility] Co de Phone Number [address] [address] * HLA [id number] High Resolution Typing (01/09/2025 11:58 AM EDT) HLA-ZXK600 Hi Res Typ SEE TISSUE TYPING RPT IN [facility] UNDER CHART REVIEW-LAB [facility] Blood 01/09/2025 11:5 8 AM EDT 01/09/2025 12:26 PM EDT us Dru Obrien MD, PhD LAB BLOOD ORDERABLES Final R esult Performing Organization Address [facility] Co de Phone Number [address] [address] * HLA DQB1 High Resolution Typing (01/09/2025 11:58 AM EDT) HLA-DQB1 Hi Res Typ SEE TISSUE TYPING RPT IN [facility] UNDER CHART REVIEW-LAB [facility] Blood 01/09/2025 11:5 8 AM EDT 01/09/2025 12:26 PM EDT us Dru Obrien MD, PhD LAB BLOOD ORDERABLES Final R esult Performing Organization Address City/[facility] Co de Phone Number [facility] [address] [place] [phone] * HLA ABO (01/09/2025 11:58 AM EDT) Pathologist [facility] [place] ABO Blood Typing SEE TISSUE TYPING RPT IN [facility] UNDER CHART REVIEW-LAB [facility] Blood 01/09/2025 11:5 8 AM EDT 01/09/2025 12:20 PM EDT us Dru Obrien MD, PhD LAB BLOOD ORDERABLES Final R esult Performing Organization Address [facility] de Phone Number [facility] [address] [place] [phone] * (ABNORMAL) CBC and differential (01/09/2025 11:58 AM EDT) Only the most recent of2 resultswithin the time period is included. Pathologist [facility] [place] WBC 1.87(L) 4.00 - 10.00 K/uL [facility] RBC 2.33(L) 4.50 - 6.40 M/uL [facility] HGB 7.7(L) 13.5 - 18.0 g/dL [facility] HCT 23.6(L) 40.0 - 54.0 % [facility] PLT 176 150 - 450 K/uL [facility] MCV 101.3(H) 80.0 - 100.0 fL [facility] MCH 33.0(H) 27.0 - 32.0 pg [facility] MCHC 32.6 32.0 - 36.0 g/dL [facility] RDW 15.1(H) 11.5 - 14.5 % [facility] MPV 10.3 8.4 - 12.0 fL [facility] NRBC 0.00 0 /100 WBCs [facility] ABSOLUTE NRBC 0.00 0 K/uL [facility] DIFF METHOD MANUAL [facility] NEUTS (MANUAL) 32.8(L) 48.0 - 76.0 % [facility] LYMPHS 57.5(H) 18.0 - 41.0 % [facility] MONOS 7.5 4.0 - 11.0 % [facility] EOSINOPHIL 0.0 0.0 - 5.0 % [facility] BASOPHIL 1.5 0.0 - 1.5 % [facility] BLASTS 0.0 0 % [facility] OTHER CELLS 0.7(H) 0.0 % [facility] Comment: Primitive cells pending pathology review. Rare atypical mononuclear cell, most compatible with leftshifted monocyte, reviewed by Bartolome Patterson MD PhD. ABSOLUTE NEUTS 0.61(L) 1.92 - 7.60 K/uL [facility] ABSOLUTE LYMPHS 1.08 0.72 - 4.10 K/uL [facility] ABSOLUTE MONOS 0.14(L) 0.16 - 1.10 K/uL [facility] ABSOLUTE EOS 0.00 0.00 - 0.50 K/uL [facility] ABSOLUTE BASO 0.03 0.00 - 0.15 K/uL [facility] ABSOLUTE BLASTS 0.00 0 K/uL [facility] Other cells (Diff) 0.01(H) 0 K/uL [facility] ANISO Few [facility] POIKILOCYTOSIS Few [facility] MACROCYTES Few [facility] STOMATOCYTES Few [facility] Blood 01/09/2025 11:5 8 AM EDT 01/09/2025 12:20 PM EDT us Dru Obrien MD, PhD LAB BLOOD BKR ORDERABLES Yves jarrod Result - Final Performing Organization Address City/[facility] Co de Phone Number [facility] [address] [place] [address] * Tissue Typing - Recipient/Donor Information and Results (01/09/2025 12:00 AM EDT) 01/09/2025 01/10/2025 10: 17 AM EDT us Loki Amaya MD, PhD LAB BLOOD ORDERABLES Tiffanie l Result Performing Organization Address City/[facility]/ZIP Co de Phone Number [facility] [place] [address] * Cytogenetics (01/09/2025 12:00 AM EDT) 01/09/2025 01/10/2025 Narrative [facility] - 01/20/2025 8:41 PM EDT CASE: [id number] PATIENT: DRU MCGILL Date: 1950 Sex: Male [facility] Department of Pathology [address] [place] [address] CLIA License No.: [id number] Garnisher: Omaira Avilez, PhD, [facility] Physician: FRANCES MEYER PA-C Specimen Submitted: -Bone Marrow ~SP_Collection_date Research Clerk: Bayron Candelario Ph.D.Lisette RESULTS: 46,XY[13] CELLS CULTURED: YES METAPHASES COUNTED: 13 ANALYZED: 13 SCORED: 0 BANDING: GTG INTERPRETATION: Only 13 metaphases were obtained and analyzed from this unstimulated bone marrow specimen and no cytogenetic aberrations were identified. While two cultures were initiated from this specimen, sufficient metaphases were only available for analysis from a single culture. COMMENTS: This limited study does not rule out mosaicism at a level that is standard for a routine analysis. Small chromosome anomalies may not be detected. Chromosome analysis was performed at a level of 400 bands or greater. 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 COMMENT: The bone marrow biopsy is hypocellular with mild myeloid skew and left-shifted myeloid maturation. Aspicular, hemodiluted aspirate smears preclude definitive blast quantification. However, CD34 immunohistochemistry of the core biopsy shows a regionally variable increase in blasts (~7% overall, with a fragment/region approaching 12%). Blast quantification of the touch prep reveals approximately 5% blasts (may not be fully authorization representative). Flow cytometry is reportedly confounded by hemodilution, but detects immunohistochemical aberrancies among blasts. While recovery following treatment may be contributing to the patient's overall blast count, the bone marrow histopathology and immunophenotypically aberrant myeloblasts raise strong suspicion for residual/persistent involvement by the patient's myeloid neoplasm. Correlation with Rapid Heme Panel and karyotype is advised for further evaluation. CORE BIOPSY: Biopsy specimen quality/adequacy: Fragmented, but evaluable Marrow biopsy cellularity: variable, ~20% overall; normocellular for age Myeloid:erythroid ratio: mildly increased Myeloid maturation: left-shifted Erythroid maturation: complete Megakaryocytes: decreased, include small, hypolobated forms Blasts: Modestly increased, positive for CD34 and CD117, with variable frequencies among marrow fragments. A 1,000-cell, multifocal count of a CD34 immunostain under oil encompassing multiple fragments reveals 7.1% CD34+ blasts overall (one fragment exhibits enriched blasts up to ~12%; persistent on repeat immunostaining). Cohesive sheets of blasts are not seen. Lymphocytes: Multiple, non-paratrabecular lymphocytic aggregates are noted, collectively comprising approximately 10% of the limited marrow cellularity. The aggregates are composed predominantly of CD3+ T cells (CD20+ B cells are rare), favor reactive. Of note, the largest lymphocytic aggregate appears to co-localize with an area of clustered blasts. Scattered hemosiderin-laden macrophages are seen. A Giemsa special stain was performed to evaluate mast cells and plasma cells. ASPIRATE: Specimen adequacy: aspicular, hypocellular, hemodilute, resembles peripheral blood, inadequate for evaluation. Touch prep: adequate A 500-cell count of the TOUCH PREP reveals: 5% blasts 57% myeloid elements 25% erythroid elements 12% lymphocytes 1% plasma cells M:E ratio 2.3 Examination of the touch prep reveals left-shifted myeloid elements, some with prominent granulation, maturing erythroid elements that include rare forms with irregular nuclear contours, and borderline increased blasts (5%). Megakaryocytes are adequate and include small forms. PERIPHERAL BLOOD: Review of the peripheral smear reveals anemia and leukopenia, with rare left-shifted granulocytes and monocytes. Mature granulocytes do not exhibit overt dysplasia. Circulating blasts are not identified. CBC results from 01/09/25 are as follows: WBC 1.87 K/uL; HGB 7.7 g/dL; HCT 23.6%; MCV 101.3 fL; RDW 15.1%; PLT 176 K/uL. Manual differential: 32.8% polys; 57.5% lymphs; 7.5% monos; 0% eos; 1.5% basos; 0% blasts; 0.7% other WBCs; 0 nRBC/100WBC. FLOW CYTOMETRY (by report, [employer] [phone], MARROW): Specimen quality: SUBOPTIMAL, specimen is HEMODILUTED. The flow cytometric findings reveal an aberrant myeloid progenitor population present at 1.2% of total non-erythroid cells. Independent immunophenotypic analysis of the myeloid progenitor population reveals abnormal surface antigen expression consisting of CD45, HLA-DR, CD13, CD19 (heterogeneous), CD33 (dim), CD34, CD38 (decreased), CD117 (heterogeneous) and CD123. The myeloid progenitor population lacks expression of CD11b, CD14, CD16, CD7, CD36, CD56, CD64, and. Total non-erythroid cells expressing CD34 are present at 2.9%. [facility] Clinical History Aml s/p 3 cycles hma/wilma now pre BMT. [facility] Operation Bone marrow core biopsy. [facility] Operative Findings None provided. [facility] Clinical Diagnosis None provided. [facility] Tissue Submitted A/1. Bone marrow core biopsy B/2. Aspirate smears C/3. Peripheral blood smear [facility] Gross Description The specimen is received in 3 parts, each labeled with the patient's name and medical record number. Part A received in [facility] and consists of 2 cores of torres tissue (averaging 0.6 cm in length by 0.2 cm in diameter) with attached portion of clot (0.1 cm in greatest dimension). The specimen is briefly decalcified in RapidCal-Immuno for 30 minutes and entirely submitted. A1: 2 fragments. Part B consists of 9 air-dried bone marrow aspirate smears. Part C consists of a Richards-stained peripheral blood smear. Dictated by: Pamela Lock By his/her signature below, the senior physician certifies that he/she personally conducted a microscopic examination ( gross only exam if so stated) of the described specimen(s) and rendered or confirmed the diagnosis(es) related thereto. The immunoperoxidase, immunofluorescence and in-situ hybridization tests performed at [facility] were developed and their performance characteristics determined by the Immunohistochemistry Laboratories in the Department of Pathology at [facility]. They have not been cleared or approved by the U.S. Food and Drug Administration (FDA). The FDA has determined that such clearance or approval is not necessary. The immunohistochemical (IHC) stains performed on this case are deemed medically necessary. Some of the antigens may also have been evaluated by flow cytometry. Concurrent evaluation by IHC on tissue sections is indicated in this case in order to correlate immunophenotype with cell morphology and/or determine extent of involvement, spatial pattern and focality of potential disease distribution. [facility] Procedure Comments ProcCreate a paraffin block - [facility] Decalcification of a specimen - [facility] (order for accession only, not for recut) Giemsa Level 1 - [facility] C-KIT/(CD117) for myeloblasts - [facility] CD34 (hematopoietic progenitor; some endothelium) - [facility] CD34 (hematopoietic progenitor; some endothelium) - [facility] CD20 (alexis-B cell; B1) - [facility] Bone Marrow Stained Slide - [facility] Peripheral Blood Stained Slide - [facility] Touch Prep on bone marrow aspirate, pro charge Bone Marrow Unstained Slide - [facility] (order for accession only, not for recut) H&E stain on level 2 slide - [facility] No bake, 63 degrees for [facility] lab - [facility] CD3 (alexis-T cell, post-thymic) - [facility] (for accession only, not for recut) No bake, 63 degrees for [facility] lab - [facility] Report Accession No: [id number] Date: 1950 Sex: Male [facility] Department of Pathology [address] [place] [address], [address].: [id number] Garnisher: Dr. Bismark Leigh M.D., Ph.D. Physician: KING ROLDAN MD Procedure Date: 01/09/2025 Resident: Tami Child MD Pathologist: Bartolome Patterson M.D., Ph.D. PATHOLOGIC DIAGNOSIS: A. 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 COMMENT: The bone marrow biopsy is hypocellular with mild myeloid skew and left-shifted myeloid maturation. Aspicular, hemodiluted aspirate smears preclude definitive blast quantification. However, CD34 immunohistochemistry of the core biopsy shows a regionally variable increase in blasts (~7% overall, with a fragment/region approaching 12%). Blast quantification of the touch prep reveals approximately 5% blasts (may not be fully authorization representative). Flow cytometry is reportedly confounded by hemodilution, but detects immunohistochemical aberrancies among blasts. While recovery following treatment may be contributing to the patient's overall blast count, the bone marrow histopathology and immunophenotypically aberrant myeloblasts raise strong suspicion for residual/persistent involvement by the patient's myeloid neoplasm. Correlation with Rapid Heme Panel and karyotype is advised for further evaluation. CORE BIOPSY: Biopsy specimen quality/adequacy: Fragmented, but evaluable Marrow biopsy cellularity: variable, ~20% overall; normocellular for age Myeloid:erythroid ratio: mildly increased Myeloid maturation: left-shifted Erythroid maturation: complete Megakaryocytes: decreased, include small, hypolobated forms Blasts: Modestly increased, positive for CD34 and CD117, with variable frequencies among marrow fragments. A 1,000-cell, multifocal count of a CD34 immunostain under oil encompassing multiple fragments reveals 7.1% CD34+ blasts overall (one fragment exhibits enriched blasts up to ~12%; persistent on repeat immunostaining). Cohesive sheets of blasts are not seen. Lymphocytes: Multiple, non-paratrabecular lymphocytic aggregates are noted, collectively comprising approximately 10% of the limited marrow cellularity. The aggregates are composed predominantly of CD3+ T cells (CD20+ B cells are rare), favor reactive. Of note, the largest lymphocytic aggregate appears to co-localize with an area of clustered blasts. Scattered hemosiderin-laden macrophages are seen. A Giemsa special stain was performed to evaluate mast cells and plasma cells. ASPIRATE: Specimen adequacy: aspicular, hypocellular, hemodilute, resembles peripheral blood, inadequate for evaluation. Touch prep: adequate A 500-cell count of the TOUCH PREP reveals: 5% blasts 57% myeloid elements 25% erythroid elements 12% lymphocytes 1% plasma cells M:E ratio 2.3 Examination of the touch prep reveals left-shifted myeloid elements, some with prominent granulation, maturing erythroid elements that include rare forms with irregular nuclear contours, and borderline increased blasts (5%). Megakaryocytes are adequate and include small forms. PERIPHERAL BLOOD: Review of the peripheral smear reveals anemia and leukopenia, with rare left-shifted granulocytes and monocytes. Mature granulocytes do not exhibit overt dysplasia. Circulating blasts are not identified. CBC results from 01/09/25 are as follows: WBC 1.87 K/uL; HGB 7.7 g/dL; HCT 23.6%; MCV 101.3 fL; RDW 15.1%; PLT 176 K/uL. Manual differential: 32.8% polys; 57.5% lymphs; 7.5% monos; 0% eos; 1.5% basos; 0% blasts; 0.7% other WBCs; 0 nRBC/100WBC. FLOW CYTOMETRY (by report, [employer] [phone], MARROW): Specimen quality: SUBOPTIMAL, specimen is HEMODILUTED. The flow cytometric findings reveal an aberrant myeloid progenitor population present at 1.2% of total non-erythroid cells. Independent immunophenotypic analysis of the myeloid progenitor population reveals abnormal surface antigen expression consisting of CD45, HLA-DR, CD13, CD19 (heterogeneous), CD33 (dim), CD34, CD38 (decreased), CD117 (heterogeneous) and CD123. The myeloid progenitor population lacks expression of CD11b, CD14, CD16, CD7, CD36, CD56, CD64, and. Total non-erythroid cells expressing CD34 are present at 2.9%. CLINICAL DATA: History: Aml s/p 3 cycles hma/wilma now pre BMT. Operation: Bone marrow core biopsy. Operative Findings: None provided. Clinical Diagnosis: None provided. TISSUE SUBMITTED: A/1. Bone marrow core biopsy B/2. Aspirate smears C/3. Peripheral blood smear GROSS DESCRIPTION: The specimen is received in 3 parts, each labeled with the patient's name and medical record number. Part A received in [facility] and consists of 2 cores of torres tissue (averaging 0.6 cm in length by 0.2 cm in diameter) with attached portion of clot (0.1 cm in greatest dimension). The specimen is briefly decalcified in RapidCal-Immuno for 30 minutes and entirely submitted. A1: 2 fragments. Part B consists of 9 air-dried bone marrow aspirate smears. Part C consists of a Richards-stained peripheral blood smear. Dictated by: Pamela Lock By his/her signature below, the senior physician certifies that he/she personally conducted a microscopic examination ( gross only exam if so stated) of the described specimen(s) and rendered or confirmed the diagnosis(es) related thereto. The immunoperoxidase, immunofluorescence and in-situ hybridization tests performed at [facility] were developed and their performance characteristics determined by the Immunohistochemistry Laboratories in the Department of Pathology at [facility]. They have not been cleared or approved by the U.S. Food and Drug Administration (FDA). The FDA has determined that such clearance or approval is not necessary. The immunohistochemical (IHC) stains performed on this case are deemed medically necessary. Some of the antigens may also have been evaluated by flow cytometry. Concurrent evaluation by IHC on tissue sections is indicated in this case in order to correlate immunophenotype with cell morphology and/or determine extent of involvement, spatial pattern and focality of potential disease distribution. Final Diagnosis by Bartolome Patterson M.D., Ph.D., Electronically signed on Wednesday January 15, 2025 at 06:10:17PM [facility] Conversion Type (Other) 01/09/2025 01/09/2025 Conversion Type (Other) 01/09/2025 01/09/2025 Conversion Type (Blood, Peripheral) 01/09/2025 01/09/2025 King Hodges M.D. Leukemia D antonia Roldan MD LAB PATHOLOGY ORDERABLES Edited Result - Final [facility] * Rapid Heme Panel (12/26/2024 9:21 AM EDT) RAPID HEME PANEL BLOOD SEE PATHOLOGY REPORT [facility] Blood 12/26/2024 9:21 AM EDT 12/26/2024 9:38 AM EDT King Hodges M.D. Leukemia Hans Roldan MD LAB BLO OD ORDERABLES Final Result Performing Organization Address [facility] Co de Phone Number [facility] [address] [place] [phone] * Hold Specimen In Blood Bank (12/26/2024 9:21 AM EDT) Expiration Date of Sample 11:59 PM 12/26/2024 9:54 AM EDT [facility] Resulting Agency [facility] Blood 12/26/2024 9:21 AM EDT 12/26/2024 9:42 AM EDT King Hodges M.D. Leukemia Hans Roldan MD LAB BLO OD BANK TEST ORDERABLES Final Result Performing Organization Address City/[facility]/ZIP Co de Phone Number [facility] [address] [place] [phone] * LDH (12/26/2024 9:21 AM EDT) LDH 141 135 - 225 U/L [facility] Blood 12/26/2024 9:21 AM EDT 12/26/2024 9:38 AM EDT us King Hodges M.D. Leukemia Dfpam Roldan MD LAB BLO OD BKR ORDERABLES Final Result [facility] [address] [place] [address] * (ABNORMAL) Comprehensive metabolic panel (12/26/2024 9:21 AM EDT) SODIUM 141 136 - 145 mmol/L [facility] POTASSIUM 3.6 3.4 - 5.1 mmol/L [facility] CHLORIDE 107 98 - 107 mmol/L [facility] CO2 23 22 - 31 mmol/L [facility] BUN 26(H) 6 - 23 mg/dL [facility] CREATININE 1.33(H) 0.50 - 1.20 mg/dL [facility] GLUCOSE 117(H) 70 - 100 mg/dL [facility] ALBUMIN 4.4 3.5 - 5.2 g/dL [facility] TOTAL PROTEIN 7.3 6.4 - 8.3 g/dL [facility] CALCIUM 9.4 8.8 - 10.7 mg/dL [facility] ALKALINE PHOSPHATASE 109 40 - 129 U/L [facility] TOTAL BILIRUBIN 0.4 0.2 - 1.2 mg/dL [facility] AST 21 <41 U/L [facility] ALT 28 <42 U/L [facility] GLOBULIN 2.9 2.3 - 4.2 g/dL [facility] EGFR 56(L) >59 mL/min/1.7 3m2 [facility] Comment:Estimated glomerular filtration rate calculated using the CKD-EPI refit equation. ANION GAP 11 7 - 17 mmol/L [facility] Blood 12/26/2024 9:21 AM EDT 12/26/2024 9:38 AM EDT King Hodges M.D. Leukemia Hans Roldan MD LAB BLO OD BKR ORDERABLES Final Result Performing Organization Address City/[facility]/ZIP Co de Phone Number [facility] [address] [place] [phone] * PTT (12/26/2024 9:21 AM EDT) [facility] APTT 27.5 22.7 - 35.9 sec [facility] Blood 12/26/2024 9:21 AM EDT 12/26/2024 9:38 AM EDT King Hodges M.D. Leukemia Hans Roldan MD LAB BLO OD BKR ORDERABLES Final Result Performing Organization Address [facility] de Phone Number [facility] [address] [place] [phone] * PT-INR (12/26/2024 9:21 AM EDT) [facility] PT 14.1 12.1 - 14.8 sec [facility] INR 1.1 0.9 - 1.1 [facility] Blood 12/26/2024 9:21 AM EDT 12/26/2024 9:38 AM EDT King Hodges M.D. Leukemia Hans Roldan MD LAB BLO OD BKR ORDERABLES Final Result Performing Organization Address [facility] Co de Phone Number [facility] [address] [place] [phone] * Fibrinogen (12/26/2024 9:21 AM EDT) FIBRINOGEN 367 200 - 400 mg/dL [facility] Blood 12/26/2024 9:21 AM EDT 12/26/2024 9:38 AM EDT King Hodges M.D. Leukemia Hans Roldan MD LAB BLO OD BKR ORDERABLES Final Result Performing Organization Address City/[facility]/ZIP Co de Phone Number [facility] [address] [place] [phone] * Uric acid (12/26/2024 9:21 AM EDT) URIC ACID 4.4 3.4 - 7.0 mg/dL [facility] Blood 12/26/2024 9:21 AM EDT 12/26/2024 9:38 AM EDT King Hodges M.D. Leukemia Hans Roldan MD LAB BLO OD BKR ORDERABLES Final Result Performing Organization Address [facility] Co de Phone Number [facility] [address] [place] [phone] * (ABNORMAL) Phosphorus (12/26/2024 9:21 AM EDT) PHOSPHORUS 2.0(L) 2.5 - 4.5 mg/dL [facility] Blood 12/26/2024 9:2 1 AM EDT 12/26/2024 9:38 AM EDT King Hodges M.D. Leukemia Hans Roldan MD LAB BLO OD BKR ORDERABLES Final Result Performing Organization Address City/[facility] de Phone Number [facility] [address] [place] [phone] * Magnesium (12/26/2024 9:21 AM EDT) MAGNESIUM 2.3 1.7 - 2.6 mg/dL [facility] Blood 12/26/2024 9:21 AM EDT 12/26/2024 9:38 AM EDT us King Hodges M.D. Leukemia [facility] [place] LAB BLO OD BKR ORDERABLES Final Result [facility] [address] [place] [address] * Rapid Heme Panel (12/26/2024 12:00 AM EDT) Results Sample Type: Molec D x Blood ==== RAPID HEME PANEL ==== QC: PASS Pathogenic Single Nucleotide Variants and Small Insertions/Deletions* RUNX1 c.485G>A (p.R162K) 3.5% VAF (1608x consensus coverage) SETBP1 c.2602G>A (p.D868N) 4.9% VAF (697x consensus coverage) SRSF2 c.284C>G (p.P95R) 7.4% VAF (1072x consensus coverage) *This test is designed for somatic analysis of variants and may provide information about the germline. It cannot distinguish between somatic and germline variants. Germline testing should be ordered separately, as indicated. Copy Number Analysis*: Read count analysis shows no significant copy number alterations in the regions tested. IKZF1 deletion: not detected ERG deletion: not detected KMT2A(MLL)-PTD: not detected *This test assesses only autosomal chromosomal copy number changes. FLT3-ITD Analysis None Detected. This assay has been validated to detect FLT3-ITDs with insert size up to 180 bp. AR (allelic ratio) is approximated as Mutant/Wildtype or Sum(Mutants)/Wildtype and is calculated from the variant allele fraction by the following formula: AR=FLT3-ITD alleles / wild-type alleles. However, the AR may be underestimated for certain ITDs by the technical limitations of the assay and should be considered semi-quantitative only for these cases. The validated limit of ITD detection is 0.01 AR, but lower ARs may be called at the pathologist discretion as clinically indicated. Values <0.01 should be viewed with caution. Other Variants of Unknown Significance (VUS)*: None Detected. *This test is designed for somatic analysis of variants and may provide information about the germline. It cannot distinguish between somatic and germline variants. Germline testing should be ordered separately, as indicated. Some variants on the VUS list may later found to be pathogenic and some may be of germline in nature. The following recurrently mutated codons have wild type sequences only: ABL1 315 BRAF 594 BRAF 595 BRAF 596 BRAF 597 BRAF 600 BRAF 601 CBL 371 CBL 384 CBL 404 CSF3R 615 CSF3R 617 CSF3R 618 DDX41 525 DNMT3A 882 ETNK1 244 FLT3 835 GNAS 201 GNB1 57 IDH1 132 IDH2 140 IDH2 172 JAK2 617 KIT 816 KIT 822 KIT 823 KRAS 12 KRAS 13 KRAS 61 KRAS 146 MAP2K1 57 MAP2K1 121 MPL 505 MPL 515 MYD88 265 NOTCH1 2514 NPM1 287 NPM1 288 NRAS 12 NRAS 13 NRAS 61 NRAS 146 PTPN11 60 PTPN11 61 PTPN11 71 PTPN11 72 PTPN11 73 PTPN11 76 SF3B1 625 SF3B1 626 SF3B1 662 SF3B1 666 SF3B1 700 SF3B1 742 STAT3 640 STAT3 661 U2AF1 34 U2AF1 156 U2AF1 157 XPO1 571 The following recurrently mutated codons have inadequate coverage(<100X): KRAS 12 KRAS 13 [facility] Results\Inte rpretation QC details*: MTC: 536.3066 KX105o: 92.42% *MTC > 325 and HO729n > 85% is considered as good quality RUNX1 p.R162K [id number] MISSENSE 21q22.12: RUNX1 encodes a outbound call center representative factor that regulates formation of hematopoietic stem cells and myeloid differentiation. It interacts with CBF beta. RUNX1 mutations are recurrent in a wide range of myeloid neoplasms as well as in both B and T-ALL. In additional, RUNX1 translocations are recurrent in both AML and B-ALL. Pathogenic nonsense, frameshift, and splice site mutations are found throughout the coding region and cause loss of function. Deleterious missense variants are also found in and just after the RUNT domains, including relative hotspots at codons 166 and around codon 200. In myeloid neoplasms, RUNX1 mutations often occur as progression events, associated with adverse prognosis. Germline qrcx-ci-thazmvvi RUNX1 mutations are associated with the autosomal dominant familial platelet disorder with associated myeloid malignancy. (PMIDs: [id number], [id number], [id number], [id number]) SETBP1 p.D868N [id number] MISSENSE 18q12.3: SETBP1 encodes a protein with a ski-homology domain and a SET binding domain and is believed to play role in DNA replication as well as PP2A phosphatase inhibition. SETBP1 mutations are recurrent in a wide range of myeloid neoplasms, and are relatively enriched in atypical CML. SETBP1 activating mutations are missense mutations centered around SETBP1 p.D868. In myeloid neoplasms, SETBP1 mutations often occur as progression events, associated with adverse prognosis. (PMIDs: [id number], [id number], 86336830, 29833637, [id number]) SRSF2 p.P95R [id number] MISSENSE 17q25.2: SRSF2 encodes a component of the spliceosome, binding exonic splicing enhancer elements in pre-mRNA.SRSF2 mutations are recurrently found in myeloid neoplasms such as MDS, AML, CMML and myelofibrosis. Pathogenic mutations are also found in systemic mastocytosis. Pathogenic missense and in-frame deletion mutations involve the hotspot p.P95 codon. SRSF2 pathogenic variants are thought to result in altered exon-exclusion rates and missplicing of genes and may portend a poorer OS in myeloid neoplasms. (PMIDs: [id number], [id number], 46224787, 18857287, 98061692, 14116989, 81149854, 90099904, 23109506, 56245305, 57805683, 06260438, [id number]) Test Information: The [facility] Rapid Heme Panel (RHP) Assay is a next generation sequencing assay based on the [employer] Servicest kit from [employer]. A detailed description of the assay is available upon request from [facility], [facility]. Amplification method: [employer] Direct(R), [employer] Assay Version: Rapid Heme Panel V3.0 Genes: Total 88,(183 KB) whole coding sequence for most genes Sequencing platform: Illumina NextSeq 550Dx, 150bp paired-end reads Raw data processing: BWA Mem (v0.7.17) MISTY Correction: [employer]Mob[employer]io (v0.4.0) Variant Caller: Vardict (v1.6.0) CNV Caller: RobustCNV (internally developed) FLT3-ITD: TsaiITD (internally developed) Data File formats: BAM, VCF Genome version: hg19 Metrics: GATK (v.4.0.5.0) and Tradier (v0.4.0) Variant Annotation: Variant Effect Predictor (v79) Pipeline cutoff: 3 Variant Reads and 1% variant allele frequency. Analytical sensitivity: Varies from locus to locus, but is estimated to be 3.0% at 325x consensus coverage The test performed at [facility] were developed and their performance characteristics determined by the Molecular Diagnostic Laboratory in the Department of Pathology at [facility]. They have not been cleared or approved by the U.S. Food and Drug Administration (FDA). The FDA has determined that such clearance or approval is not necessary. The following regions have insufficient number of sequence reads (<100X) for evaluation. Gene Exon Start End Coverage OLIVER e40 [id number] 217728909 48.8125 ATRX e03 50517509 12758410 39.425 BCOR e03 20816596 48400695 43.724739 e05 84777469 08084835 47.280646 BRCC3 e2 826616966 979032149 31.336603 CREBBP e01 9236917 2414673 47.768185 CUX1 e01 734179390 519174047 44.746890 e24 575997003 891918282 38.254917 DKC1 e04 573413712 722722718 47.659722 IDH2 e1 64998357 57194598 32.605453 NF1 e16 09198034 04345779 42.459447 e20 30660936 15032479 37.423116 e24 94370049 76302888 19.079595 e36 29131408 09665173 39.846302 NT5C2 e11 425913944 852101540 30.995041 PTEN e02 99121424 00952231 45.305207 PTPN11 e14 325711859 733060704 19.497589 STAG2 e03 373887896 100687077 42.548698 STAT3 e11 68628746 25193842 34.502093 TERT e01 9552496 6981861 16.31742 Targeted Gene/Exon List (genomic coordinates available upon request): The [facility] Rapid Heme Panel (RHP) Assay is a next generation sequencing assay based on the [employer] Serv[employer]est kit from [employer] A detailed description of the assay is available upon request from [facility], [facility]. ABL1 [id number] 5 alt e1 ABL1 [id number] 5 e1-e10 ASXL1 FERD24861404315 4 e11-e12 OLIVER QYHT48219790130 4 e2-e63 ATRX PVPW66234205350 5 e1-e35 BCOR AUMT70470671611 4 e2-e15 BCORL1 HIEW85453880917 1 e1-e12 BCORL1 [id number] 1 alt e8 BRAF PVIR33814304712 6 e12-e16 BRCC3 CJQS10708727500 1 e1-e11 BTK WYWF52485825027 7 e11,e15-e16 CALR ZIPK28428997350 5 e9 CBL UTQL92921528543 4 e7-e9 CCND1 CWTV29849421510 2 e1-e5 CD79B ADAX90585510096 3 e5-e6 CDKN2A BNJK91957905819 1 e1-e4 CDKN2A NM_[id number] 1 alt e1 CDKN2B LEUR53289527309 6 e1-e2 CEBPA BLWJ94597377436 2 e1 CREBBP CBDX95988466127 5 e1-e31 CRLF2 KQSQ23987170193 3 e5 CSF3R PPJJ28995643186 1 e14-e17 NPPI3N5 MTIY10755745397 2 e1-e10 BXVP9R5 LRZW55594399293 2 alt e5 CTCF BNXL23464962493 4 e3-e12 CUX1 UEUW12023527340 7 e1-e24 CUX1 KVML07847838045 7 alt e1,e15-e23 CXCR4 WIIK22938316791 3 e3 DDX41 UMCE93710551564 1 e1-e17 DKC1 SPOD84476308422 5 e1-e15 DNMT3A BXXL71793855958 3 alt e1-e2 DNMT3A RWCW65003885703 3 e2-e23 DNMT3A [id number] 3 alt e1 EP300 XRRY98818204401 7 e1-e31 ERG WGEP51348085709 2 alt e1 ERG OKDK62909520578 2 e3-e12 ERG [id number] 2 alt e12 ETNK1 XCQC16253889297 4 e3 ETV6 UGPS26478253861 4 e1-e8 EZH2 LWFI70434613823 2 e2-e20 FBXW7 IXKJ06587968147 4 e10-e14 FLT3 VFIQ98545142393 7 e14,e16-e17,e20 GATA1 APQW52274198950 3 e2-e6 GATA2 TRER46795977204 2 e2-e6 GNAS JXTD55251721267 3 e8-e9 GNB1 KTJR99291491565 4 e5-e6 IDH1 ZTUF86285845334 2 e3-e10 IDH2 FIVJ35450778539 3 e1-e11 IKZF1 CIYB33437202287 3 e2-e8 IKZF1 XFNF46112148273 3 alt e4 IKZF1 XDYR56778339150 3 alt e5 IL7R TGZZ49761355552 3 e5-e7 JAK1 TQUY57117146541 4 e10-e25 JAK2 IBQU29836879364 3 e12-e20 JAK3 RIOV15260702525 1 e16-e24 KIT RBTD72352548808 5 e8-e11,e17 KRAS AUUS84977929979 3 e2-e6 KRAS KHUX65081547278 3 alt e5 KMT2A RRPU62567008707 1 e1-e13,e24-e26 MAP2K1 YMYP19781545329 5 e2-e3,e6 e28-e30 MPL XUDB62329980219 3 e4,e10 NF1 VWET45615222089 3 e1-e57 NF1 QEAO22011927489 3 alt e31 MYC WALI23489167118 2 e1-e3 MYD88 CVAB91579757195 3 e5 NOTCH2 FXHV41070789489 2 e24-e28,e34 NFE2 JXXC99423019481 1 e3-e4 NOTCH1 FKGJ08184925564 6 e24-e28,e34 NSD2 DBWF66016511498 3 e20-e21 NPM1 MLLM80220874035 5 e10-e11 NRAS VOJP28488563938 4 e2-e5 PIGA RXLD80411535616 4 e1-e62 NT5C2 XLFO66376532111 5 e10-e18 PHF6 KTTV99563288501 1 e1-e9 PRPF8 OCVJ11359734061 6 e25-e34 PLCG2 FWYO20211794931 3 e18-e19,e23 e26,e29 PPM1D YSRD21354021687 3 e6 RAD21 NDKO31016517476 2 e2-e14 PTEN XWVQ06271537069 3 e1-e9 PTPN11 FVFO33059894573 2 e1-e15 SBDS LAJQ71225738434 2 e1-e5 RIT1 FCMX32232816258 3 alt e1 RIT1 DIIT13008196980 3 e2-e6 RUNX1 QUXR77792910662 1 e2-e9 RUNX1 ICNJ79948485739 1 alt e5 SF3B1 FCWH17791148872 6 e12-e18 SETBP1 UUTN57939501819 5 e4 SETD2 BTXQ36742506464 3 e1-e21 SMC3 OTOH47645182525 4 e1-e29 SH2B3 QIYO89018206530 2 alt e1 SH2B3 XNFU65416403448 2 e2-e8 SMC1A HAPS72295341774 4 e1-e25 SMC1A [id number] 4 alt e2 STAT3 UIZS25096331730 5 e2-e24 SRSF2 KUXY04762265085 5 e1 STAG2 LJVF48935009081 9 e3-e35 TERT WKUR16575289694 5 e1-e16 STAT5B FHBA23998168438 3 e13-e19 TERC UFYD33505895318 1 e1 U2AF1 WODA80568519432 4 e2,e6 TET2 FHNK93140857331 4 e3-e11 TP53 SMZE69797052514 4 e2-e11 TP53 HIJA93471920434 4 alt e10 ZRSR2 MOMS46581860200 7 e1-e11 WT1 TICW21484508339 3 alt e1 WT1 LVKN05248366908 3 e1-e10 XPO1 RZHV29384332788 2 e15-e16 The test performed at [facility] were developed and their performance characteristics determined by the Molecular Diagnostic Laboratory in the Department of Pathology at [facility]. They have not been cleared or approved by the U.S. Food and Drug Administration (FDA). The FDA has determined that such clearance or approval is not necessary. By his/her signature below, the senior physician certifies that he/she personally reviewed all the laboratory data of the described specimen(s) and rendered or confirmed the diagnosis(es) related thereto. [facility] Procedure Comments ProcRapid Heme Panel - [facility] RHP Professional Interpretation RHP - AML [facility] Report Accession No: [id number] Date: 1950 Sex: Male [facility] Molecular Diagnostics & Histocompatibility Lab [facility] [place] [address] CLIA License #: [id number] Garnisher: Dr. Dai Vicente Physician: KING ROLDAN MD Specimen Submitted: Molecular Procedure Date: 12/26/2024 Pathologist: Della Randle M.D., Ph.D. CLINICAL DATA: Clinical History: None given. 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 It cannot distinguish between somatic and germline variants. Germline testing should be ordered separately, as indicated. Copy Number Analysis*: Read count analysis shows no significant copy number alterations in the regions tested. IKZF1 deletion: not detected ERG deletion: not detected KMT2A(MLL)-PTD: not detected *This test assesses only autosomal chromosomal copy number changes. FLT3-ITD Analysis None Detected. This assay has been validated to detect FLT3-ITDs with insert size up to 180 bp. AR (allelic ratio) is approximated as Mutant/Wildtype or Sum(Mutants)/Wildtype and is calculated from the variant allele fraction by the following formula: AR=FLT3-ITD alleles / wild-type alleles. However, the AR may be underestimated for certain ITDs by the technical limitations of the assay and should be considered semi-quantitative only for these cases. The validated limit of ITD detection is 0.01 AR, but lower ARs may be called at the pathologist discretion as clinically indicated. Values <0.01 should be viewed with caution. Other Variants of Unknown Significance (VUS)*: None Detected. *This test is designed for somatic analysis of variants and may provide information about the germline. It cannot distinguish between somatic and germline variants. Germline testing should be ordered separately, as indicated. Some variants on the VUS list may later found to be pathogenic and some may be of germline in nature. The following recurrently mutated codons have wild type sequences only: ABL1 315 BRAF 594 BRAF 595 BRAF 596 BRAF 597 BRAF 600 BRAF 601 CBL 371 CBL 384 CBL 404 CSF3R 615 CSF3R 617 CSF3R 618 DDX41 525 DNMT3A 882 ETNK1 244 FLT3 835 GNAS 201 GNB1 57 IDH1 132 IDH2 140 IDH2 172 JAK2 617 KIT 816 KIT 822 KIT 823 KRAS 12 KRAS 13 KRAS 61 KRAS 146 MAP2K1 57 MAP2K1 121 MPL 505 MPL 515 MYD88 265 NOTCH1 2514 NPM1 287 NPM1 288 NRAS 12 NRAS 13 NRAS 61 NRAS 146 PTPN11 60 PTPN11 61 PTPN11 71 PTPN11 72 PTPN11 73 PTPN11 76 SF3B1 625 SF3B1 626 SF3B1 662 SF3B1 666 SF3B1 700 SF3B1 742 STAT3 640 STAT3 661 U2AF1 34 U2AF1 156 U2AF1 157 XPO1 571 The following recurrently mutated codons have inadequate coverage(<100X): KRAS 12 KRAS 13 INTERPRETATION: QC details*: MTC: 536.3066 YH165f: 92.42% *MTC > 325 and DA777t > 85% is considered as good quality RUNX1 p.R162K chr21:32331985 MISSENSE 21q22.12: RUNX1 encodes a outbound call center representative factor that regulates formation of hematopoietic stem cells and myeloid differentiation. It interacts with CBF beta. RUNX1 mutations are recurrent in a wide range of myeloid neoplasms as well as in both B and T-ALL. In additional, RUNX1 translocations are recurrent in both AML and B-ALL. Pathogenic nonsense, frameshift, and splice site mutations are found throughout the coding region and cause loss of function. Deleterious missense variants are also found in and just after the RUNT domains, including relative hotspots at codons 166 and around codon 200. In myeloid neoplasms, RUNX1 mutations often occur as progression events, associated with adverse prognosis. Germline drcl-ky-zfytyhrs RUNX1 mutations are associated with the autosomal dominant familial platelet disorder with associated myeloid malignancy. (PMIDs: 46508065, 97870681, 01739381, 76673234) SETBP1 p.D868N chr18:01079422 MISSENSE 18q12.3: SETBP1 encodes a protein with a ski-homology domain and a SET binding domain and is believed to play role in DNA replication as well as PP2A phosphatase inhibition. SETBP1 mutations are recurrent in a wide range of myeloid neoplasms, and are relatively enriched in atypical CML. SETBP1 activating mutations are missense mutations centered around SETBP1 p.D868. In myeloid neoplasms, SETBP1 mutations often occur as progression events, associated with adverse prognosis. (PMIDs: 79665753, 88249422, 78910957, 96620514, 82998479) SRSF2 p.P95R chr17:62569373 MISSENSE 17q25.2: SRSF2 encodes a component of the spliceosome, binding exonic splicing enhancer elements in pre-mRNA.SRSF2 mutations are recurrently found in myeloid neoplasms such as MDS, AML, CMML and myelofibrosis. Pathogenic mutations are also found in systemic mastocytosis. Pathogenic missense and in-frame deletion mutations involve the hotspot p.P95 codon. SRSF2 pathogenic variants are thought to result in altered exon-exclusion rates and missplicing of genes and may portend a poorer OS in myeloid neoplasms. (PMIDs: 25610209, 02474618, 83519687, 78173232, 15521638, 08515174, 73471320, 88028279, 22713207, 32792901, 30071770, 52847256, 98367087) Test Information: The [facility] Rapid Heme Panel (RHP) Assay is a next generation sequencing assay based on the [employer] Serv[employer]est kit from [employer]. A detailed description of the assay is available upon request from [facility]. Amplification method: [employer] Direct(R), [employer] Assay Version: Rapid Heme Panel V3.0 Genes: Total 88,(183 KB) whole coding sequence for most genes Sequencing platform: Illumina NextSeq 550Dx, 150bp paired-end reads Raw data processing: BWA Mem (v0.7.17) MISTY Correction: Fgbio (v0.4.0) Variant Caller: Vardict (v1.6.0) CNV Caller: RobustCNV (internally developed) FLT3-ITD: TsaiITD (internally developed) Data File formats: BAM, VCF Genome version: hg19 Metrics: GATK (v.4.0.5.0) and Tradier (v0.4.0) Variant Annotation: Variant Effect Predictor (v79) Pipeline cutoff: 3 Variant Reads and 1% variant allele frequency. Analytical sensitivity: Varies from locus to locus, but is estimated to be 3.0% at 325x consensus coverage The test performed at [facility] were developed and their performance characteristics determined by the Molecular Diagnostic Laboratory in the Department of Pathology at [facility]. They have not been cleared or approved by the U.S. Food and Drug Administration (FDA). The FDA has determined that such clearance or approval is not necessary. The following regions have insufficient number of sequence reads (<100X) for evaluation. Gene Exon Start End Coverage OLIVER e40 050380323 561381573 48.8125 ATRX e03 59361348 85945469 39.425 BCOR e03 23586161 85518524 43.301945 e05 16276723 80029557 47.691568 BRCC3 e2 709932053 935728904 31.444180 CREBBP e01 1025248 1522266 47.882350 CUX1 e01 809246996 945610694 44.622886 e24 511320926 428789921 38.442227 DKC1 e04 661030551 931216455 47.244214 IDH2 e1 34296405 61693213 32.229536 NF1 e16 90132055 53069837 42.213932 e20 73598575 24834454 37.591568 e24 47799915 04008366 19.585660 e36 72794792 49358221 39.945048 NT5C2 e11 172338247 712510186 30.605701 PTEN e02 27139675 83461553 45.911979 PTPN11 e14 016788126 397797173 19.695909 STAG2 e03 106288515 786553033 42.631787 STAT3 e11 81686868 99078389 34.964139 TERT e01 1157054 4291764 16.70601 Targeted Gene/Exon List (genomic coordinates available upon request): The [facility] Rapid Heme Panel (RHP) Assay is a next generation sequencing assay based on the [employer] kit from [employer] A detailed description of the assay is available upon request from [facility], [facility]. ABL1 [id number] 5 alt e1 ABL1 CCUJ00460445561 5 e1-e10 ASXL1 KEDL13948557264 4 e11-e12 OLIVER OTPW61766326680 4 e2-e63 ATRX XNQX41083219242 5 e1-e35 BCOR DDWG96746168751 4 e2-e15 BCORL1 YMFX47959297659 1 e1-e12 BCORL1 NM_[id number] 1 alt e8 BRAF KYQN74796176984 6 e12-e16 BRCC3 TFVF52773432492 1 e1-e11 BTK HSLB03967499246 7 e11,e15-e16 CALR KDDK35100373335 5 e9 CBL XAZL95059263838 4 e7-e9 CCND1 SQIJ75700169218 2 e1-e5 CD79B YDBH73914708085 3 e5-e6 CDKN2A LUIW48659343339 1 e1-e4 CDKN2A NM_058195 1 alt e1 CDKN2B LFTP00839420970 6 e1-e2 CEBPA RCON78567648978 2 e1 CREBBP GIGP78952564000 5 e1-e31 CRLF2 VJBK79782681241 3 e5 CSF3R ZTXA01849291836 1 e14-e17 BAQS5U3 ICGG41122312843 2 e1-e10 IQZI3H9 UNRM95335583790 2 alt e5 CTCF LYCY47639349998 4 e3-e12 CUX1 ZQFZ41553594820 7 e1-e24 CUX1 DHVA46270785924 7 alt e1,e15-e23 CXCR4 EGWZ43643848512 3 e3 DDX41 NYFU47830779907 1 e1-e17 DKC1 EHJZ81485191696 5 e1-e15 DNMT3A XQLK31429361689 3 alt e1-e2 DNMT3A BIBW38632420143 3 e2-e23 DNMT3A NM_[id number] 3 alt e1 EP300 GLIA65801379698 7 e1-e31 ERG OEKL61856378757 2 alt e1 ERG BGIU53926160917 2 e3-e12 ERG NM_[id number] 2 alt e12 ETNK1 UGPR45007826276 4 e3 ETV6 PDZV33148700301 4 e1-e8 EZH2 MGGJ85392045460 2 e2-e20 FBXW7 IRZV75012432575 4 e10-e14 FLT3 RHMA27590510582 7 e14,e16-e17,e20 GATA1 CUXZ09933972879 3 e2-e6 GATA2 SHBZ79838289699 2 e2-e6 GNAS YTJZ61405346737 3 e8-e9 GNB1 VTMZ49913512060 4 e5-e6 IDH1 KZKY60581490623 2 e3-e10 IDH2 VCKC74919857668 3 e1-e11 IKZF1 HYNF25663170946 3 e2-e8 IKZF1 OKDD54946502072 3 alt e4 IKZF1 WQZF86542257048 3 alt e5 IL7R ZBPQ58876243211 3 e5-e7 JAK1 WEXO38817135935 4 e10-e25 JAK2 QQRG89315872267 3 e12-e20 JAK3 ZTEG57983903899 1 e16-e24 KIT BBGP31588665230 5 e8-e11,e17 KRAS YIKJ76740058732 3 e2-e6 KRAS IATX94250527463 3 alt e5 KMT2A CZDF83159261668 1 e1-e13,e24-e26 MAP2K1 OFPU77090185826 5 e2-e3,e6 e28-e30 MPL JPUG07706993326 3 e4,e10 NF1 OGYU92642661645 3 e1-e57 NF1 WFMA85605657037 3 alt e31 MYC JWXK39304434529 2 e1-e3 MYD88 KKUC52034068002 3 e5 NOTCH2 JQJE11735220618 2 e24-e28,e34 NFE2 DGSU78683857471 1 e3-e4 NOTCH1 FEXC25260936124 6 e24-e28,e34 NSD2 QMVO55292801883 3 e20-e21 NPM1 RPSG04345563430 5 e10-e11 NRAS KZPS87918211011 4 e2-e5 PIGA PQYW58467373190 4 e1-e62 NT5C2 MKRS41992036219 5 e10-e18 PHF6 CBIT54525375559 1 e1-e9 PRPF8 PQXX03863230003 6 e25-e34 PLCG2 RPDC48153205672 3 e18-e19,e23 e26,e29 PPM1D HUUP24760238018 3 e6 RAD21 ORUU12366366011 2 e2-e14 PTEN ZEAM07895082929 3 e1-e9 PTPN11 CYWF54870603900 2 e1-e15 SBDS BOIK49432272566 2 e1-e5 RIT1 LCTJ05567606747 3 alt e1 RIT1 BBAE93046323890 3 e2-e6 RUNX1 CPSD58214006053 1 e2-e9 RUNX1 UKSG81416173182 1 alt e5 SF3B1 LHSC44647292392 6 e12-e18 SETBP1 EOYF19409685265 5 e4 SETD2 JCRA54609881822 3 e1-e21 SMC3 RCOC14704936175 4 e1-e29 SH2B3 UNDU17272513823 2 alt e1 SH2B3 AGIO36316287600 2 e2-e8 SMC1A MBDA96513306296 4 e1-e25 SMC1A NM_[id number] 4 alt e2 STAT3 BNCX70365512765 5 e2-e24 SRSF2 VDRO21775179169 5 e1 STAG2 HDRQ34343142131 9 e3-e35 TERT DZAS10842036843 5 e1-e16 STAT5B OZJB13208635641 3 e13-e19 TERC TJMF78561409581 1 e1 U2AF1 PRIQ65122383533 4 e2,e6 TET2 VBBS93868163020 4 e3-e11 TP53 WVND86345514137 4 e2-e11 TP53 OYRH81163533570 4 alt e10 ZRSR2 CZOT12422054429 7 e1-e11 WT1 PNJR05069543106 3 alt e1 WT1 JYEE88075381230 3 e1-e10 XPO1 AKUC18958516693 2 e15-e16 The test performed at [facility] were developed and their performance characteristics determined by the Molecular Diagnostic Laboratory in the Department of Pathology at [facility]. They have not been cleared or approved by the U.S. Food and Drug Administration (FDA). The FDA has determined that such clearance or approval is not necessary. By his/her signature below, the senior physician certifies that he/she personally reviewed all the laboratory data of the described specimen(s) and rendered or confirmed the diagnosis(es) related thereto. Final Diagnosis by Della Randle M.D., Ph.D., Electronically signed on Thursday January 02, 2025 at 06:10:49PM [facility] Conversion Type (Other) 12/26/2024 12/26/2024 us King Hodges M.D. Leukemia Dfci Spring [place] PATHOLO GY ORDERABLES Edited Result - Final [facility] [address] [place] [address] * Outside Lab (11/16/2024) Only the most recent of2 resultswithin the time period is included. us Scanning Interface Provider LAB BLOOD BKR ORDERA BLES Final Result from Last 3 Months Insurance [facility] MEDICARE PPO BLUE REPLACEMENT [facility] MEDICARE PPO BLUE REPLACEMENT [id number] [place] [address] MEDICARE PPO BLUE REPLACEMENT [id number] MEDICARE PPO BLUE REPLACEMENT [id number] MEDICARE PPO BLUE REPLACEMENT [facility] MEDICARE PPO BLUE REPLACEMENT Care Teams Boat Crew Deck Hand Relationship Specialty Start Date End Date Sarath Anthony DO [address] [place] [address] [place] [address] PCP - General Family Medicine 12/04/24 Domenico Arshad MD [address] [place] [address] [place]ematology [place] [address] [email or web address] Referring Physician 12/04/24 Stephanie Choi RN [address] [place] [email or web address] Nurse Navigator Transplant 01/09/25 Additional Source Comments The information contained in this document represents components of the legal health record. It is not the complete legal health record.[facility]
--- OUTSIDE RECORDS SUMMARY | 2025-02-07 18:52 | XMS_ITS | Encounter Summary ---
Author Organization [facility] Address [address] [place] [address] Phone Care Team Providers Care Etiologist Name Role Phone Sarath Anthony Primary Care Provider Domenico Arshad MD Unavailable [phone] Stephanie Choi RN Unavailable Encounter Details Date Type Department Care Team (Late st Contact Info) Description 01/04/2025 Orders Only Division of Hematologic Oncology, [facility] [place] [address] [place] [address] Familia Obrien MD, PhD [address] [place] [address] [email or web address] Acute 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 [...] on file documented as of this encounter Results * (ABNORMAL) CBC and differential (01/09/2025 11:58 AM EDT) WBC 1.87(L) 4.00 - 10.00 K/uL [facility] RBC 2.33(L) 4.50 - 6.40 M/uL [facility] HGB 7.7(L) 13.5 - 18.0 g/dL [facility] HCT 23.6(L) 40.0 - 54.0 % [facility] PLT 176 150 - 450 K/uL [facility] MCV 101.3(H) 80.0 - 100.0 fL [facility] MCH 33.0(H) 27.0 - 32.0 pg [facility] MCHC 32.6 32.0 - 36.0 g/dL [facility] RDW 15.1(H) 11.5 - 14.5 % [facility] MPV 10.3 8.4 - 12.0 fL [facility] NRBC 0.00 0 /100 WBCs [facility] ABSOLUTE NRBC 0.00 0 K/uL [facility] DIFF METHOD MANUAL [facility] NEUTS (MANUAL) 32.8(L) 48.0 - 76.0 % [facility] LYMPHS 57.5(H) 18.0 - 41.0 % [facility] MONOS 7.5 4.0 - 11.0 % [facility] EOSINOPHIL 0.0 0.0 - 5.0 % [facility] BASOPHIL 1.5 0.0 - 1.5 % [facility] BLASTS 0.0 0 % [facility] OTHER CELLS 0.7(H) 0.0 % [facility] Comment: Primitive cells pending pathology review. Rare atypical mononuclear cell, most compatible with leftshifted monocyte, reviewed by Bartolome Patterson MD PhD. ABSOLUTE NEUTS 0.61(L) 1.92 - 7.60 K/uL [facility] ABSOLUTE LYMPHS 1.08 0.72 - 4.10 K/uL [facility] ABSOLUTE MONOS 0.14(L) 0.16 - 1.10 K/uL [facility] ABSOLUTE EOS 0.00 0.00 - 0.50 K/uL [facility] ABSOLUTE BASO 0.03 0.00 - 0.15 K/uL [facility] ABSOLUTE BLASTS 0.00 0 K/uL [facility] Other cells (Diff) 0.01(H) 0 K/uL D [facility] ANISO Few [facility] POIKILOCYTOSIS Few [facility] MACROCYTES Few [facility] STOMATOCYTES Few [facility] Blood 01/09/2025 11:5 8 AM EDT 01/09/2025 12:20 PM EDT us Familia Obrien MD, PhD LAB BLOOD BKR ORDERABLES Yves jarrod Result - Final [facility] [address] [place] [address] documented in this encounter Visit Diagnoses Diagnosis 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 documented in this encounter Care Teams Etiologist Relationship Specialty Start Date End Date Sarath Anthony DO [address] [facility] [place] [address] PCP - General Family Medicine 12/04/24 [place] [address] [place] [address] [place] [address] [email or web address] Referring Physician 12/04/24 Stephanie Choi RN [address] [place] [address] [email or web address] Nurse Navigator Transplant 01/09/25 documented as of this encounter Additional Source Comments The information contained in this document represents components of the legal health record. It is not the complete legal health record.[facility]
--- OUTSIDE RECORDS SUMMARY | 2025-02-07 18:52 | XMS_ITS | Clinical Summary ---
Author Organization [facility] Address [address] [place] [address] Phone Care Team Providers Care Dielectric Testing Machine Operator Name Role Phone Sarath Anthony DO Primary Care Provider [phone] Allergies Active Allergy Reactions Criticality Noted Date Comments Clarithromycin Hives High 11/11/2023 Clindamycin High 11/11/2023 Other Reaction(s): BLOODY STOOL Medications amLODIPine (NORVASC) 5 mg tablet TAKE 1+1/2 TABLETS BY MOUTH DAILY Active atorvastatin (LIPITOR) 20 mg tablet Take 1 tablet (20 mg total) by mouth 1 (one) time each day. Active Surgical History Surgery Date Site/Laterality Comments COLONOSCOPY Medical History Medical History Date Comments Hypertension Hyperlipidemia Dysuria Family History Medical History Relation Name Comments Stroke Brother Coronary artery disease Father Stroke Mother Relation Name Status Comments Brother Father Mother Social History Tobacco Use Types Packs/Day Years Used Date Smoking Tobacco: Never Smokeless Tobacco: Never Tobacco Cessation:Counseling Given: Not Answered Alcohol Use Standard Drinks/Week Comments Yes 0 (1 standard drink = 0.6 oz pur e alcohol) Sex and Gender Information Value Date Recorded Sex Assigned at Not on file Legal Sex Male 1:50 PM EDT Gender Identity Not on file Sexual Orientation Not on file Obstetrics History Last Filed Vital Signs Vital Sign Reading Time Taken Comments Blood Pressure 154/51 02/28/2024 8:53 AM EST Pulse 54 02/28/2024 8:53 AM EST Temperature 36.7 C (98 F) 02/28/2024 8:53 AM EST Respiratory Rate - - Oxygen Saturation 100% 02/28/2024 8:53 AM EST Inhaled Oxygen Concentration - - Weight 74.3 kg (163 lb 12.8 oz) 02/28/2024 8:53 AM EST Height 177.8 cm (5' 10 ) 02/28/2024 8:53 AM EST Body Mass Index 23.5 02/28/2024 8:53 AM EST Plan of Treatment Health Maintenance Due Date Last Done Comments Colorectal Cancer Screening: Colonoscopy 1949 DTaP,Tdap,and Td Vaccines (1 - Tdap) 1968 Pneumococcal Vaccine: 50+ Years (1 of 1 - PCV) 1999 Zoster Vaccines (1 of 2) 1999 Cholesterol Screening (Lipid Panel) 01/05/2024 Falls Risk Assessment 01/05/2024 Hepatitis C Screening 01/05/2024 Social Influencers of Health Screening 01/05/2024 Hypertension/CHF/CAD Annual BMP Blood Test 02/17/2024 Depression Screening 03/29/2024 COVID-19 Vaccine (4 - 2024-2 6 season) 2024 03/04/2021, 06/25/2020, 05/28/2020 Influenza Vaccine (#1) 2024 02/17/2024 RSV Immunization Adult Patients Completed 02/17/2024 HIB Vaccines Aged Out No longer eligi ble based on patient's age to complete this topic HPV Vaccines Aged Out No longer eligi ble based on patient's age to complete this topic Hepatitis A Vaccines Aged Out No long er eligible based on patient's age to complete this topic Hepatitis B Vaccines Aged Out No long er eligible based on patient's age to complete this topic IPV Vaccines Aged Out No longer eligi ble based on patient's age to complete this topic MMR Vaccines Aged Out No longer eligi ble based on patient's age to complete this topic Meningococcal ACWY Vaccine Aged Out N o longer eligible based on patient's age to complete this topic Meningococcal B Vaccine Aged Out No l onger eligible based on patient's age to complete this topic RSV Immunization Patients Under 20 months Aged Out No longer eligible b ased on patient's age to complete this topic Varicella Vaccines Aged Out No longer eligible based on patient's age to complete this topic Insurance [facility] Care Teams Dielectric Testing Machine Operator Relationship Specialty Start Date End Date Sarath Anthony DO [address] [place], [place] PCP - General Family Medicine 02/03/24
--- OUTSIDE RECORDS SUMMARY | 2025-02-07 18:52 | XMS_ITS | Encounter Summary ---
Author Organization [facility] Address [address] [place] [address] Phone Care Team Providers Care Monkey Keeper Name Role Phone Anthony, Sarath Cazaresip Primary Care Provider Domenico Arshad MD Unavailable [phone] Stephanie Choi RN Unavailable Encounter Details Date Type Department Care Team (Late st Contact Info) Description 01/22/2025 Documentation Central Registration, [facility] [address] [facility], 2nd [place] [address] Ira Diaz [address] [place] [address] [email or web address] Social History Tobacco Use Types Packs/Day Years [...] your housing situation today? I have johan fowler 12/20/2024 How many times have you move [...] on filedocumented in this encounter Care Teams Monkey Keeper Relationship Specialty Start Date End Date Sarath Anthony DO [address] [facility] [place] [address] PCP - General Family Medicine 12/04/24 Domencio Arshad MD [address] [facility] [place]ology [place] [address] [email or web address] Referring Physician 12/04/24 Stephanie Choi, RN [address] [place] [address] [email or web address] Nurse Navigator Transplant 01/09/25 documented as of this encounter Additional Source Comments The information contained in this document represents components of the legal health record. It is not the complete legal health record.[facility]
--- OUTSIDE RECORDS SUMMARY | 2025-02-07 18:53 | XMS_ITS | Encounter Summary ---
Author Organization [facility] Address [address] [place] [address] Phone Care Team Providers Care Valet Cashier Name Role Phone AnthonySarath carballo Primary Care Provider Domenico Arshad MD Unavailable [phone] Stephanie Choi RN Unavailable Encounter Details Date Type Department Care Team (Late st Contact Info) Description 01/31/2025 Lab Requisition [facility] [address] Diomedes Smith MD, MPH [address] [place] [id number] [email or web address] Donor of unspecified organ or tissue Social [...] /Time HSCT Donor - Final (Confirmatory) Workup ([facility]) Lab Routine Donor of unspecified organ or tissue 01/29/2025 11:18 AM EST documented as of this encounter Visit Diagnoses Diagnosis Donor of unspecified organ or tissue documented in this encounter Care Teams Valet Cashier Relationship Specialty Start Date End Date Sarath Anthony DO [address] [facility] [place] [address] PCP - General Family Medicine 12/04/24 Domenico Arshad MD [address] [facility] Hematology [place] [address] [email or web address] Referring Physician 12/04/24 Stephanie Choi RN [address] [place] [address] [email or web address] Nurse Navigator Transplant 01/09/25 documented as of this encounter Additional Source Comments The information contained in this document represents components of the legal health record. It is not the complete legal health record.[facility]
--- OUTSIDE RECORDS SUMMARY | 2025-02-07 18:53 | XMS_ITS | Encounter Summary ---
Author Organization [facility] Address [address] [facility] [address] [place] [address] Phone Care Team Providers Care Office Director Name Role Phone Sarath Anthony Primary Care Provider Domenico Arshad MD Unavailable [phone] Stephanie Choi RN Unavailable Encounter Details Date Type Department Care Team (Latest Contact Info) Description 01/31/2025 Lab Requisition [facility] Histocmpatibility Lab [address] [place] [address] Diomedes Smith MD, MPH [address] [place] [address] [email or web address] Donor of unspecified organ or tissue Social [...] /Time HSCT Donor - Final (Confirmatory) Workup ([facility]) Lab Routine Donor of unspecified organ or tissue 01/30/2025 2:25 PM EST documented as of this encounter Visit Diagnoses Diagnosis Donor of unspecified organ or tissue documented in this encounter Care Teams Office Director Relationship Specialty Start Date End Date Sarath Anthony DO [address] [facility] [place] [address] PCP - General Family Medicine 12/04/24 Domenico Arshad MD [address] [facility] [place]ematology [place] [address] [email or web address] Referring Physician 12/04/24 Stephanie Choi, STEPHANE [address] [place] [phone] [email or web address] Nurse Navigator Transplant 01/09/25 documented as of this encounter Additional Source Comments The information contained in this document represents components of the legal health record. It is not the complete legal health record.[facility]
--- OUTSIDE RECORDS SUMMARY | 2025-02-07 18:53 | XMS_ITS | Encounter Summary ---
Author Organization [facility] Address [address] [place] [address] Phone Care Team Providers Care Fur Blowing Machine Operator Name Role Phone Sarath Anthony Primary Care Provider Domenico Arshad MD Unavailable [phone] Stephanie Choi RN Unavailable Encounter Details Date Type Department Care Team (Latest Contact Info) Description 02/05/2025 Lab Requisition [facility] Histocmpatibility Lab [address] [place] [address] Diomedes Smith MD, MPH [address] [place] [address] [email or web address] Donor of unspecified organ or [...] /Time HSCT Donor - Final (Confirmatory) Workup ([facility]) Lab Routine Donor of unspecified organ or tissue 01/31/2025 11:54 AM EST documented as of this encounter Visit Diagnoses Diagnosis Donor of unspecified organ or tissue documented in this encounter Care Teams Fur Blowing Machine Operator Relationship Specialty Start Date End Date Sarath Anthony DO [address] [facility] [place] [address] PCP - General Family Medicine 12/04/24 Domenico Arshad MD [address] [facility] Hematology [place] [address] [email or web address] Referring Physician 12/04/24 Stephanie Choi, STEPHANE [address] [place] [phone] [email or web address] Nurse Navigator Transplant 01/09/25 documented as of this encounter Additional Source Comments The information contained in this document represents components of the legal health record. It is not the complete legal health record.[facility]
--- OUTSIDE RECORDS SUMMARY | 2025-02-07 18:53 | XMS_ITS | Encounter Summary ---
Author Organization [facility] Address [address] [facility] [address] [place] [address] Phone Care Team Providers Care Dry Paste Supervisor Name Role Phone Sarath Anthony Primary Care Provider Domenico Arshad MD Unavailable [phone] Stephanie Choi RN Unavailable Encounter Details Date Type Department Care Team (Latest Contact Info) Description 02/01/2025 Lab Requisition [facility] Histocmpatibility Lab [address] [place] [address] Diomedes Smith MD, MPH [address] [place] [address] [email or web address] Donor of unspecified organ or tissue Social [...] /Time HSCT Donor - Final (Confirmatory) Workup ([facility]) Lab Routine Donor of unspecified organ or tissue 01/29/2025 8:34 AM EST documented as of this encounter Visit Diagnoses Diagnosis Donor of unspecified organ or tissue documented in this encounter Care Teams Dry Paste Supervisor Relationship Specialty Start Date End Date Sarath Anthony DO [address] [facility] [place] [address] PCP - General Family Medicine 12/04/24 Domenico Arshad MD [address] [facility] [place]ology [place] [address] [email or web address] Referring Physician 12/04/24 Stephanie Choi, STEPHANE [address] [place] [id number] [email or web address] Nurse Navigator Transplant 01/09/25 documented as of this encounter Additional Source Comments The information contained in this document represents components of the legal health record. It is not the complete legal health record.[facility]
--- OUTSIDE RECORDS SUMMARY | 2025-02-07 18:53 | XMS_ITS | Encounter Summary ---
Author Organization [facility] Address [address] [place] [address] Phone Care Team Providers Care Fitter Tacker Name Role Phone Sarath Anthony Primary Care Provider Domenico Arshad MD Unavailable [phone] Stephanie Choi RN Unavailable Encounter Details Date Type Department Care Team (Latest Contact Info) Description 01/31/2025 Lab Requisition [facility] Histocmpatibility Lab [address] [place] [address] Diomedes Smith MD, MPH [address] [place] [address] [email or web address] Donor of unspecified organ or tissue Social [...] /Time HSCT Donor - Final (Confirmatory) Workup ([facility]) Lab Routine Donor of unspecified organ or tissue 01/29/2025 12:00 AM EST documented as of this encounter Visit Diagnoses Diagnosis Donor of unspecified organ or tissue documented in this encounter Care Teams Fitter Tacker Relationship Specialty Start Date End Date Sarath Anthony DO [address] [facility] [place] [address] PCP - General Family Medicine 12/04/24 Domenico Arshad MD [address] [facility] Hematology [place] [address] [email or web address] Referring Physician 12/04/24 Stephanie Choi, STEPHANE [address] [place] [phone] [email or web address] Nurse Navigator Transplant 01/09/25 documented as of this encounter Additional Source Comments The information contained in this document represents components of the legal health record. It is not the complete legal health record.[facility]
== END 2025-02-07 17:06 | disposition home or self-care (01) ==
PROVIDERS: PCP Family Medicine; Visit Provider Internal Medicine Nephrology
DX: N18.31 Chronic kidney disease, stage 3a (principal); I10 Essential (primary) hypertension
CPT/HCPCS: 99214